=== PATIENT | female | born 1995 | race Caucasian/White ===

== ENCOUNTER 2024-11-28 09:50 | Outpatient (REF) | payer MEDICAID, SELFPAY ==
--- OUTSIDE RECORDS SUMMARY | 2024-11-28 09:00 | XMS_ITS | Encounter Summary ---
Author Organization [employer] Address [address] [facility] [address] 7t [place] [address] Care Team Providers Care Gastroenterology Teacher Name Role Phone Jacqueline Cardozo Primary Care Provider [phone] Encounter Details Date Type Department Care Team ([facility] st Contact Info) Description 11/28/2024 9:00 AM EDT Office Visit [facility] MEDICINE [address] [place] [address] Jacqueline Cardozo FNP [address] [place] [address] Adult wellness visit (Primary Dx); Dietary counseling; Exercise counseling Social History Tobacco Use Types Packs/Day Years Used Date Smoking Tobacco: Never Passive Smoke Exposure: Never Smokeless Tobacco: Never Depression Answer Date Recorded Patient Health Questionnaire-9 Score 3 11/24/2024 Patient Health Questionnaire-9 Score 3 11/24/2024 Last PHQ-9: Questionnaire Data Not on file 0 11/24/2024 Housing Stability Answer Date Recorded What is your housing situation today? I have tc frey 11/17/[address] you li ve. Do you have problems with any of the following? None of the above 11/17/2024 Food Insecurity Answer Date Recorded Within the past 12 months, y ou worried that your food would run out before you got money to buy more: Never True 11/17/2024 Within the past 12 months,th e food you bought just didn't last and you didn't have enough money to get more: Never True Transportation Answer Date Recorded In the past 12 months, has l ack of transportation kept you from medical appts, meetings, work or from getting things needed for daily living? No 11/17/2024 Utilities Answer Date Recorded In the past 12 months, has t he electric, gas, oil or water company threatened to shut off services in your home? No 11/17/2024 Depression Answer Date Recorded Patient Health Questionnaire-2 Score 0 11/24/2024 Internet Access Answer Date Recorded Internet Access Q1 Yes 11/17/2024 Internet Access Q2 Not on file 11/17/2024 Comments Unknown Sex and Gender Information Value Date Recorded Sex Assigned at Female 08/23/2024 2:07 PM EDT Legal Sex Female 9:37 AM EST Gender Identity Female 08/23/2024 2:07 PM EDT Sexual Orientation Straight 08/23/2024 2: 07 PM EDT documented as of this encounter Last Filed Vital Signs Vital Sign Reading Time Taken Comments Blood Pressure 124/84 11/28/2024 9:00 AM EDT Pulse 92 11/28/2024 9:00 AM EDT Temperature 36.8 C (98.2 F) 11/28/2024 9:00 AM EDT Respiratory Rate 16 11/28/2024 9:00 AM EDT Oxygen Saturation 98% 11/28/2024 9:00 AM EDT Inhaled Oxygen Concentration - - Weight 101 kg (223 lb 8 oz) 11/28/2024 9:00 AM E DT Height 169.5 cm (5' 6.73 ) 11/28/2024 9:00 AM ED T Body Mass Index 35.29 11/28/2024 9:00 AM EDT documented in this encounter Plan of Treatment Scheduled Orders Name Type Priority Associated Diagnoses Orde r Schedule Hepatitis B Surface Antibody, Qualitative Lab Routine Adult wellness visit Expected: 11/28/2024 (Approximate), Expires: 11/27/2025 Hepatitis B surface antigen, EIA Lab Routine Adult wellness visit Expected: 11/28/2024 (Approximate), Expires: 11/27/2025 Hepatitis C Antibody with Reflex to HCV, RNA, Quantitative, Real-Time PCR Lab Routine Adult wellness visit Expected: 11/28/2024, Expires: 11/27/2025 CBC auto differential Lab Routine Adult wellness visit Expected: 11/28/2024 (Approximate), Expires: 11/27/2025 HIV-1/2 Antigen and Antibodies, Fourth Generation, with Reflexes Lab Routine Adult wellness visit Expected: 11/28/2024 (Approximate), Expires: 11/27/2025 Lipid Panel, Standard Lab Routine Adult wellness visit Expected: 11/28/2024 (Approximate), Expires: 11/27/2025 Vitamin D, 25-Hydroxy, Total, Immunoassay Lab Routine Adult wellness visit Expected: 11/28/2024 (Approximate), Expires: 11/27/2025 Hemoglobin A1c Lab Routine Adult wellness visit Expected: 11/28/2024 (Approximate), Expires: 11/27/2025 TSH Lab Routine Adult wellness visit Expected: 11/28/2024 (Approximate), Expires: 11/27/2025 Hepatitis B Core Antibody, Total Lab Routine Adult wellness visit Expected: 11/28/2024 (Approximate), Expires: 11/27/2025 Comprehensive Metabolic Panel Lab Routine Adult wellness visit Expected: 11/28/2024 (Approximate), Expires: 11/27/2025 documented as of this encounter Visit Diagnoses Diagnosis Adult wellness visit- Primary Dietary counseling Dietary surveillance and counseling Exercise counseling documented in this encounter Additional Health Concerns Assessment Noted Time PHQ-9 Depression Total Score: 3 11/25/19 25 3:10 PM EDT documented as of this encounter Care Teams Gastroenterology Teacher Relationship Specialty Start Date End Date Jacqueline Cardozo FNP [address] [place] [id number] PCP - General Family Medicine 11/24/24 documented as of this encounter
--- OUTSIDE RECORDS SUMMARY | 2024-11-28 11:04 | XMS_ITS | Encounter Summary ---
Author Organization [employer] Address [address] [facility] [address] [place] [address] Care Team Providers Care Enterprise Account Executive Name Role Phone HuongVaishali WES Primary Care Provider [phone] Reason for Visit * Reason Onset Date Comments CHARTPRP 11/23/2024 Encounter Details Date Type Department Care Team (Late st Contact Info) Description 11/23/[address] [facility] MEDICINE [address] [place] [id number] Anushka Babin MA CHARTPRP Social History Tobacco Use Types Packs/Day Years Used Date Smoking Tobacco: Never Assessed Depression Answer Date Recorded Patient Health Questionnaire-9 [...] PM EDT documented as of this encounter Miscellaneous Notes * Telephone Encounter - Anushka Babin MA - 11/23/2024 3:54 PM EDT Chart Prep Labs: done Images: not applicable Referrals: Pulmonology charan 12/13/24 2:30 PM Vaccines due: Covid, Flu, PCV20, Tdap, Hep B, and HPV Screenings: pap smear Overdue care gaps: SBIRT, PHQ-9, LUIS-7, Disability screen, and Tobacco documented in this encounter Plan of Treatment Not on file documented as of this encounter Visit Diagnoses Not on filedocumented in this encounter Care Teams Enterprise Account Executive Relationship Specialty Start Date End Date Vaishali Borja NP [address] [place] [id number] PCP - General Family Medicine 08/23/24 11/23/24 documented as of this encounter
--- OUTSIDE RECORDS SUMMARY | 2024-11-28 11:04 | XMS_ITS | Clinical Summary ---
Author Organization [facility] Address [address] [facility] [address] [place] [address] Phone Care Team Providers Care Desk Clerks Supervisor Name Role Phone Eneida Andrews MD Primary Care Provid er Kvng Gold MD Unavailable [phone] Allergies Active Allergy Reactions Criticality Noted Date Comments Peanut Hives 05/03/2024 Medications albuterol 90 mcg/actuation inhaler Inhale 2 puffs into the lungs every 6 (six) hours as needed for wheezing. Active fluticasone propionate (FLONASE) 50 mcg/actuation nasal spray 1 spray by Nasal route daily. Active cetirizine (ZYRTEC) 10 MG tabletIndications :Mild intermittent asthma, unspecified whether complicated Take 1 tablet (10 mg total) by mouth daily. 90 tablet 1 05/03/2024 Active fluticasone propionate (FLONASE) 50 mcg/actuation nasal spray 2 sprays by Nasal route daily. 16 g 12 05/03/2024 Active ADVAIR DISKUS 250-50 mcg/dose DISKUSIndications :Mild intermittent asthma, unspecified whether complicated INHALE 1 PUFF INTO THE LUNGS TWICE DAILY 180 each 3 10/06/2024 Active Active Problems Problem Noted Date Diagnosed Date Sleep apnea 05/03/2024 Allergic rhinitis due to pollen 05/03/2024 Snoring 09/18/2021 Overview (05/03/2024): 08/2021 Home Sleep Study did not reveal sleep apnea or nocturnal hypoxia. Mild intermittent asthma 06/17/2021 Encounters Date Type Department Care Team Description 10/05/2024 Refill [facility] - Primary Care - [address] [id number] Keyla Vivas CNP Medication Refill from Last 3 Months Family History Medical History Relation Comments No Known Problems Brother No Known Problems Father Prostate cancer Maternal Grandfather Diabetes Mother Hypertension Mother Asthma Unspecified Relation Status Comments Brother Alive Father Alive Maternal Grandfather Mother Alive Unspecified Social History Tobacco Use Types Packs/Day Years Used Date Smoking Tobacco: Never Smokeless Tobacco: Never Tobacco Cessation:Counseling Given: Not Answered Alcohol Use Standard Drinks/Week Comments Not Currently 0 (1 standard drink = 0.6 oz pur e alcohol) OCC WINE Education Answer Date Recorded Are you interested in more education? Not on nkechi e 04/04/2024 Are you concerned about learning? Not on file 04/04/2024 No 04/04/2024 No 04/04/2024 Digital Access Answer Date Recorded No 04/04/2024 No 04/04/2024 Reliable internet access at home? Not on file 04/04/2024 Device with a working camera? Not on file Comments No Sex and Gender Information Value Date Recorded Sex Assigned at Female 03/13/2024 10:46 AM EST Legal Sex Female 10:35 AM EST Gender Identity Female 03/13/2024 10:46 AM EST Sexual Orientation Straight 03/13/2024 10 :46 AM EST Last Filed Vital Signs Vital Sign Reading Time Taken Comments Blood Pressure 110/80 05/03/2024 2:04 PM EST Pulse 100 05/03/2024 2:04 PM EST Temperature - - Respiratory Rate - - Oxygen Saturation 99% 05/03/2024 2:04 PM EST Inhaled Oxygen Concentration - - Weight 100.7 kg (222 lb) 05/03/2024 2:04 PM EST Height 162.6 cm (5' 4 ) 05/03/2024 2:04 PM EST Body Mass Index 38.11 05/03/2024 2:04 PM EST Plan of Treatment Upcoming Encounters Date Type Department Care Team (Late st Contact Info) Description 03/02/2025 2:00 PM EST Office Visit [facility] - Family Medicine - [place] [address] [place] [phone] Eneida Andrews MD [address] [place] [address] [email or web address] Health Maintenance Due Date Last Done Comments Adult Td,Tdap Booster 1995 HEPATITIS C SCREENING 2014 HIV ONE-TIME SCREENING (18-6 5 YEARS) 2014 PNEUMOCOCCAL VACCINES (0-49 years) (1 of 2 - PCV) 11/22/2015 PAP SMEAR 2017 INFLUENZA VACCINE (#1) 2024 COVID-19 VACCINE ( - 2023-2 5 season) 2024 DEPRESSION SCREENING 04/26/2025 04/26/2024 SMOKING STATUS SCREENING (On ce After 26 Yrs) Completed 05/03/2024 HEPATITIS A VACCINES Aged Out No long er eligible based on patient's age to complete this topic HIB VACCINES Aged Out No longer eligi ble based on patient's age to complete this topic MENINGOCOCCAL VACCINES (ACWY) Aged Out No longer eligible based on patient's age to complete this topic MENINGOCOCCAL VACCINES (B) Aged Out N o longer eligible based on patient's age to complete this topic Medical Devices Not on file Insurance [address] [place] [address] 03/[address] [employer] 03/[address] ACO 202 03/[address] [employer]CO * Guarantor: Campos, Loren Account Type Relation to Patient Date of Phone Billing Address Personal/Family Self 1995 [address] [place] [address] [facility] * Guarantor: Loren Campos Account Type Relation to Patient Date of Phone Billing Address Personal/Family Self 1995 [address] [place] [address] [facility] Care Teams Desk Clerks Supervisor Relationship Specialty Start Date End Date Eneida Andrews MD [email or web address] PCP - General Family Medicine 04/03/24 Kvng Gold MD [address] [place] [address] Obstetrics and Gynecology 05/03/24 Additional Source Comments The information contained in this document represents components of the legal health record. It is not the complete legal health record.[facility]
--- OUTSIDE RECORDS SUMMARY | 2024-11-28 11:04 | XMS_ITS | Encounter Summary ---
Author Organization [employer] Address [address] [facility] 7t [place] [address] Care Team Providers Care Bakery And Deli Sales Manager Name Role Phone Jacqueline Cardozo [facility] Primary Care Provider [phone] Encounter Details Date Type Department Care Team (Latest Contact Info) Description 11/28/2024 Travel Social History Tobacco Use Types Packs/Day Years Used Date Smoking Tobacco: Never Passive Smoke Exposure: Never Smokeless Tobacco: Never Depression Answer Date Recorded Patient Health Questionnaire-9 Score 3 11/24/2024 Patient Health Questionnaire-9 Score 3 11/24/2024 Last PHQ-9: Questionnaire Data Not on file 0 11/24/2024 Housing Stability Answer Date Recorded What is your housing situation today? I have tc tk 11/17/[address] you li [...] PM EDT documented as of this encounter Plan of Treatment Not on file documented as of this encounter Visit Diagnoses Not on filedocumented in this encounter Additional Health Concerns Assessment Noted Time PHQ-9 Depression Total Score: 3 11/25/19 3:10 PM EDT documented as of this encounter Care Teams Bakery And Deli Sales Manager Relationship Specialty Start Date End Date Jacqueline Cardozo FNP [address] [place] [phone] PCP - General Family Medicine 11/24/24 documented as of this encounter
--- OUTSIDE RECORDS SUMMARY | 2024-11-28 11:04 | XMS_ITS | Encounter Summary ---
Author Organization [employer] Address [address] [facility] 7t [place] [address] Care Team Providers Care Vocational Counselor Name Role Phone Jacqueline Cardozo [facility] Primary Care Provider [phone] Encounter Details Date Type Department Care Team (Latest Contact Info) Description 11/24/2024 Travel Social History Tobacco Use Types Packs/Day [...] PM EDT documented as of this encounter Functional Status * Over the past 2 weeks, how often have you been bothered by any of the following problems? Question Answer Date of Assessment Author Patient Health Questionnaire -2 Score 0 11/24/2024 3:10 PM EDT Verónica Sullivan MA * Little interest or pleasure in doing things Answer Date of Assessment Author Not at all 11/24/2024 3:10 PM EDT Verónica Woodard MA * Feeling down, depressed, or hopeless Answer Date of Assessment Author Not at all 11/24/2024 3:10 PM EDT Verónica oWodard MA * Trouble falling or staying asleep, or sleeping too much Answer Date of Assessment Author Several days 11/24/2024 3:10 PM EDT Verónica Woodard MA * Feeling tired or having little energy Answer Date of Assessment Author Several days 11/24/2024 3:10 PM EDT Verónica Woodard MA * Poor appetite or overeating Answer Date of Assessment Author Several days 11/24/2024 3:10 PM EDT Verónica Woodard MA * Feeling bad about yourself - or that you are a failure or have let yourself or your family down Answer Date of Assessment Author Not at all 11/24/2024 3:10 PM EDT Vreónica Woodard MA * Trouble concentrating on things, such as reading the newspaper or watching television Answer Date of Assessment Author Not at all 11/24/2024 3:10 PM EDT Verónica Woodard MA * Moving or speaking so slowly that other people could have noticed? Or the opposite - being so fidgety or restless that you have been moving around a lot more than usual. Answer Date of Assessment Author Not at all 11/24/2024 3:10 PM EDT Verónica Woodard MA * Thoughts that you would be better off or hurting yourself in some way Answer Date of Assessment Author Not at all 11/24/2024 3:10 PM EDT Verónica Woodard MA * Patient Health Questionnaire-9 Score Answer Date of Assessment Author 3 11/24/2024 3:10 PM EDT Verónica Woodard MA * How difficult have these problems made it for you to do your work, take care of things at home, or get along with other people? Answer Date of Assessment Author Not difficult at all 11/24/2024 3:10 PM EDT Verónica Ordonez MA * Over the last 2 weeks, how often have you been bothered by any of the following problems? Question Answer Date of Assessment Author Feeling nervous, anxious, or on edge 1 11/24/2024 3:10 PM EDT Verónica Sullivan MA Not being able to stop or control worrying 1 11/24/2024 3:10 PM EDT Verónica Sullivan MA Worrying too much about different things 1 11/24/2024 3:10 PM EDT Verónica Sullivan MA Trouble relaxing 1 11/24/2024 3:10 PM EDT Verónica Barone MA Being so restless that it is hard to sit still 0 11/24/2024 3:10 PM EDT Verónica Sullivan MA Becoming easily annoyed or irritable 1 11/24/2024 3:10 PM EDT Verónica Sullivan MA Feeling afraid as if somethi ng awful might happen 0 11/24/2024 3:10 PM EDT Verónica Sullivan MA LUIS-7 Total Score 5 11/24/2024 3:10 PM EDT Verónica Sullivan MA documented as of this encounter Plan of Treatment Not on file documented as of this encounter Visit Diagnoses Not on filedocumented in this encounter Additional Health Concerns Assessment Noted Time PHQ-9 Depression Total Score: 3 11/25/19 3:10 PM EDT documented as of this encounter Care Teams Vocational Counselor Relationship Specialty Start Date End Date Jacqueline Cardozo FNP [address] [place] [id number] PCP - General Family Medicine 11/24/24 documented as of this encounter
--- OUTSIDE RECORDS SUMMARY | 2024-11-28 11:04 | XMS_ITS | Encounter Summary ---
Author Organization [employer] Address [address] [facility] 7t [place] [address] Care Team Providers Care Account Executive Key Accounts Name Role Phone SandraVaishali montano SWITCHBOARD AND CONTROL ROOM OPERATOR Primary Care Provider [phone] Jacqueline Cardozo BUSINESS PROCESS ANALYST Primary Care Provider [phone] Reason for Visit * Reason Onset Date Comments New PT 05/19/2024 Encounter Details Date Type Department Care Team ([facility] st Contact Info) Description 05/19/2024 Telephone [facility] MEDICINE [address] [place] [address] Baudilio Simmons MD [address] [place] [address] New PT Social History Tobacco Use Types Packs/Day Years Used Date Smoking Tobacco: Never Assessed Comments Unknown Sex and Gender Information Value Date Recorded Sex Assigned at Female 08/23/2024 2:07 PM EDT Legal Sex Female 9:37 AM EST Gender Identity Female 08/23/2024 2:07 PM EDT Sexual Orientation Straight 08/23/2024 2: 07 PM EDT documented as of this encounter Miscellaneous Notes * Telephone Encounter - Brunilda Ashford - 05/19/2024 9:58 AM EST Outgoing call to pt to switch plan to C3. Pt stated she contacted and will be reflected in 24hrs. Test Examiner advised will re-verify on 05/22/24 and contact pt * Telephone Encounter - Julisa Miguel - 05/19/2024 9:42 AM EST TC from caller requesting NEW PATIENT visit . DX : Asthma Sinusitis Herpes Medical Concern: Insurance name : [employer] C3 Location : [facility] Demographic information updated documented in this encounter Plan of Treatment Not on file documented as of this encounter Visit Diagnoses Not on filedocumented in this encounter Care Teams Account Executive Key Accounts Relationship Specialty Start Date End Date Vaishali Borja NP [address] [place] [address] PCP - General Family Medicine 08/23/24 11/23/24 Jacqueline Cardozo FNP [address] [place] [address] PCP - General Family Medicine 11/24/24 documented as of this encounter
--- OUTSIDE RECORDS SUMMARY | 2024-11-28 11:05 | XMS_ITS | Clinical Summary ---
Author Organization [employer] Address [address] [facility] 7t [place] [address] Care Team Providers Care Reading Specialist Name Role Phone Jacqueline Cardozo [facility] Primary Care Provider [phone] Allergies Active Allergy Reactions Criticality Noted Date Comments Peanut-Containing Drug Products Hives 07/2024 Medications albuterol 108 (90 Base) MCG/ACT inhaler Inhale 2 puffs every 6 (six) hours if needed for wheezing. Active ibuprofen 400 MG tabletIndicati ons:Cough in adult patient Take 1 tablet (400 mg) by mouth every 6 (six) hours if needed for moderate pain or fever for up to 30 doses. 30 tablet 08/24/19 25 Active albuterol (2.5 MG/3ML) 0.083% nebulizer solutionIndica tions:Wheezing Take 3 mL (2.5 mg) by nebulization every 6 (six) hours if needed for wheezing or shortness of breath. 75 mL 1 08/24/19 25 026 Active cetirizine (ZyrTEC) 10 MG tabletIndicati ons:Viral URI TAKE 1 TABLET BY MOUTH EVERY DAY 90 tablet 1 09/19/19 25 Active budesonide-for moterol (Symbicort) 160-4.5 MCG/ACT inhaler Inhale 2 puffs in the morning and at bedtime. 10/28/19 25 Active Azelastine-Flu ticasone 137-50 MCG/ACT suspension Administer 1 puff into affected nostril(s) 2 times daily. 10/28/19 25 Active acyclovir (Zovirax) 800 MG tablet Take 800 mg by mouth Once per day. 05/26/19 22 Active hydrOXYzine HCl (Atarax) 10 MG tablet Take 10 mg by mouth if needed each day for allergies. Active fluticasone (Flonase) 50 MCG/ACT nasal sprayIndicatio ns:Cough in adult patient Administer 1 spray into each nostril 2 times daily. Shake gently. Before first use, prime pump. After use, clean tip and replace cap. 16 g 2 08/24/19 25 025 Discontinued Active Problems Problem Noted Date Diagnosed Date Moderate persistent asthma with exacerbation Acute frontal sinusitis 10/10/2024 Elevated blood pressure reading 10/10/2024 Assessment & Plan (10/10/2024 3:22 PM EDT): Likely due to her upper respiratory symptoms and discomfort I advised low-sodium diet and weight reduction I advised to follow-up with PCP Sleep apnea 05/03/2024 Allergic rhinitis due to pollen 05/03/2024 Snoring 09/18/2021 Overview (11/27/2024): 08/2021 Home Sleep Study did not reveal sleep apnea or nocturnal hypoxia. Resolved Problems Problem Noted Date Diagnosed Date Resolved Date Mild intermittent asthma 06/17/2021 Encounters Date Type Department Care Team Description 11/28/2024 9:00 AM EDT Office Visit [facility] [address] [place] [phone] Jacqueline Cardozo FNP Adult wellness visit (Primary Dx); Dietary counseling; Exercise counseling 11/28/2024 Travel 11/24/2024 Travel 11/23/2024 Telephone [facility] [address] [place] [address] Anushka Babin MA CHARTPRP 11/17/2024 Patient Outreach [facility] [address] [place], [place] [phone] Vaishali Borja NP Pre-visit Planning (SDOH negative. Tobacco screening negative. ) 10/10/2024 1:00 PM EDT Office Visit [facility] [address] [place] [address] Angela Powell MD Moderate persistent asthma with exacerbation (Primary Dx); Cough in adult patient; Acute frontal sinusitis, recurrence not specified; Elevated blood pressure reading 10/10/2024 Travel 10/04/2024 Travel 09/17/2024 Refill [facility] [address] [place] [address] Peterson Diallo MD Viral URI from Last 3 Months Immunizations Immunization Administration Dates Next Due Influenza injectable quadriv alent preservative free 04/11/2021 Pfizer Covid-19 Vaccine 12+ 04/11/2021, 1,08/03/2020 Family History Medical History Relation Name Comments Allergic rhinitis Brother Prostate cancer Maternal Grandfather dece ased Asthma Mother Diabetes Mother Hypertension Mother Relation Name Status Comments Brother Maternal Grandfather Mother Social History Tobacco Use Types Packs/Day Years Used Date Smoking Tobacco: Never Passive Smoke Exposure: Never Smokeless Tobacco: Never Tobacco Cessation:Counseling Given: Not Answered Depression Answer Date Recorded Patient Health Questionnaire-9 Score 3 11/24/2024 Patient Health Questionnaire-9 Score 3 11/24/2024 Last PHQ-9: Questionnaire Data Not on file 0 11/24/2024 Housing Stability Answer Date Recorded What is your housing situation today? I have tcneris frey 11/17/[address] you [...] Orientation Straight 08/23/2024 2: 07 PM EDT Last Filed Vital Signs Vital Sign Reading [...] Mass Index 35.29 11/28/2024 9:00 AM EDT Plan of Treatment Health Maintenance Due Date Last Done Comments HIV Screening 1995 Family Planning (PISQ) 11/22/2011 HPV Vaccines (1 - 3-dose series) 11/22/2011 Hepatitis C Screening 2014 DTaP/Tdap/Td Vaccines (1 - Tdap) 11/22/2015 Hepatitis B Vaccines (1 of 3 - 19+ 3-dose series) 11/22/2015 Pneumococcal Vaccine: Pediatrics (0 to 5 Years) and At-Risk Patients (6 to 49) Years (1 of 2 - PCV) 11/22/2015 Pap Smear 2017 COVID-19 Vaccine (4 - 2024-2 6 season) 2024 04/11/2021, 08/24/2020, 08/03/2020 Influenza Vaccine (#1) 2024 04/11/2021 Alcohol/Substance Use Screening 11/24/2025 11/24/2024 Depression Screening 11/24/2025 11/24/2024, 11/24/2024 SDOH Screening 11/24/2025 11/24/2024 Disability Screening 11/25/2025 11/25/2024 Tobacco Screening 11/28/2025 11/28/2024 Zoster Vaccines (1 of 2) 2046 RSV Patients and Patients Aged 60 years or older (1 - 1-dose 75+ series) 11/22/2071 HIB Vaccines Aged Out No longer eligi ble based on patient's age to complete this topic Hepatitis A Vaccines Aged Out No long er eligible based on patient's age to complete this topic IPV Vaccines Aged Out No longer eligi ble based on patient's age to complete this topic Meningococcal B Vaccine Aged Out No l onger eligible based on patient's age to complete this topic Meningococcal Vaccine Aged Out No kvng carey eligible based on patient's age to complete this topic RSV under 20 months Aged Out No longe r eligible based on patient's age to complete this topic Rotavirus Vaccines Aged Out No longer eligible based on patient's age to complete this topic Procedures Procedure Name Priority Date/Time Associated Diagnosis Comments POCT INFLUENZA B (ID NOW RAPID MOLECULAR) Routine 10/10/2024 1:33 PM EDT Cough in adult patient POCT INFLUENZA A (ID NOW RAPID MOLECULAR) Routine 10/10/2024 1:33 PM EDT Cough in adult patient POCT RAPID COVID ANTIGEN Routine 10/10/2024 1:21 PM EDT Cough in adult patient from Last 3 Months Results * Influenza B (ID NOW Rapid Molecular) (10/10/2024 1:33 PM EDT) Influenza B Negative Negative, Indeterminate [facility] Swab 10/10/2024 1:33 PM EDT us Angela Williamson MD POINT OF CARE TEST EN TER/EDIT ORDERABLES Final Result [facility] [address] [place] [phone] * Influenza A (ID NOW Rapid Molecular) (10/10/2024 1:33 PM EDT) Influenza A Negative Negative, Indeterminate [facility] Swab 10/10/2024 1:33 PM EDT us Angela Williamson MD POINT OF CARE TEST EN TER/EDIT ORDERABLES Final Result [facility] [address] [place] [phone] * POCT Rapid COVID Ag (10/10/2024 1:21 PM EDT) Rapid COVID Ag Negative Swab 10/10/2024 1:21 PM EDT us Angela Williamson MD POINT OF CARE TEST EN TER/EDIT ORDERABLES Final Result from Last 3 Months Insurance [facility] C3 Care Teams Reading Specialist Relationship Specialty Start Date End Date Jacqueline Cardozo FNP [address] [place] [phone] PCP - General Family Medicine 11/24/24
[2024-11-28 11:09] LABS: MANUAL DIFF FLAG NO
[2024-11-28 11:16] LABS: Hematocrit 39.7 % (37.0-47.0); Hemoglobin 13.0 g/dl (12.0-16.0); Imm Gran Abs Auto 0.03 X10*3/uL (0.00-0.03); Imm Gran Pct Auto 0.4 % (0.0-0.4); Lymphocytes Absolute Auto 2.5 X10*3/uL (1.2-4.9); Mean Corpuscular HGB Conc 32.7 g/dl (31.0-35.0); Mean Corpuscular Hemoglobin 27.4 pg (27.0-33.0); Mean Corpuscular Volume 83.8 fL (80.0-98.0); NRBC Abs Auto 0.000 X10*3/uL (0.0-0.012); NRBC Pct Auto 0.0 /100WBC (0.0-0.2); Platelet Count 350 X10*3/uL (160-400); Red Blood Count 4.74 X10*6/uL (4.20-5.50); White Blood Count 7.6 X10*3/uL (4.8-10.8)
[2024-11-28 11:36] LABS: Hemoglobin A1C 109.6546 umol/L; Total Hemoglobin (HGBA1C) 3374.3932 umol/L
[2024-11-28 12:16] LABS: HBS Num1 855.43 mIU/mL (0-7.99); HBc Num1 0.11 S/CO (0.00-0.79); HBsAGNum1 0.43 S/CO (0.00-0.99); HIV Num 1 0.05 S/CO (0.00-0.99); Hepatitis B Surface Antigen Negative (Negative); ~HepC Num1 0.10 S/CO (0.00-0.79); ~Hepatitis B Surface Antibody REACTIVE (Nonreactive); ~Hepatitis C Antibody Nonreactive (Nonreactive)
[2024-11-28 12:23] LABS: Alanine Aminotransferase 15 U/L (0-31); Albumin Level 4.0 g/dL (3.5-5.0); Alkaline Phosphatase 78 U/L (39-117); Anion Gap 10 (12-20); Aspartate Amino Transferase 19 U/L (5-31); Blood Urea Nitrogen 8 mg/dL (9-16); Calcium 8.6 mg/dL (8.4-10.2); Carbon Dioxide 27 mmol/L (22-29); Chloride 105 mmol/L (96-108); Cholesterol 196 mg/dL (<200); Estimated Glomerular Filt Rate > 60; HDL Cholesterol 39 mg/dL (>40); Potassium 3.9 mmol/L (3.3-5.1); Sodium 138 mmol/L (135-145); Thyroid Stimulating Hormone 0.61 uIU/mL (0.32-4.0); Total Protein 7.0 g/dL (6.5-8.0); Triglycerides 115 mg/dL (<150)
== END 2024-11-28 09:51 | disposition home or self-care (01) ==
LOC: HO.HHCL 09:50
PROVIDERS: PCP Nurse Practitioner Family; Visit Provider Nurse Practitioner Family
DX: Z00.00 Encounter for general adult medical examination without abnormal findings (principal)
CPT/HCPCS: 36415; 80053; 80061; 82306; 83036; 84443; 85025; 86704; 86706; 86803; 87340; 87389

== ENCOUNTER 2024-12-13 14:33 | Outpatient (REF) | payer MEDICAID, SELFPAY ==
[2024-12-13 18:36] LABS: Hematocrit 37.8 % (37.0-47.0); Hemoglobin 12.3 g/dl (12.0-16.0); Imm Gran Abs Auto 0.02 X10*3/uL (0.00-0.03); Imm Gran Pct Auto 0.3 % (0.0-0.4); Lymphocytes Absolute Auto 3.1 X10*3/uL (1.2-4.9); MANUAL DIFF FLAG NO; Mean Corpuscular HGB Conc 32.5 g/dl (31.0-35.0); Mean Corpuscular Hemoglobin 27.5 pg (27.0-33.0); Mean Corpuscular Volume 84.4 fL (80.0-98.0); NRBC Abs Auto 0.000 X10*3/uL (0.0-0.012); NRBC Pct Auto 0.0 /100WBC (0.0-0.2); Platelet Count 338 X10*3/uL (160-400); Red Blood Count 4.48 X10*6/uL (4.20-5.50); White Blood Count 7.9 X10*3/uL (4.8-10.8)
[2024-12-14 20:23] LABS: Class Alternaria alternata 0; Class Aspergillus fumigatus 0; Class Bermuda Grass 0; Class Birch 0; Class Cat Dander 0/1; Class Cladosporium herbarum 0; Class Cockroach 0; Class Common Ragweed 0; Class Cottonwood 0; Class Derm. pterony 2; Class Dermatophagoides farinae 2; Class Dog Dander 0; Class Elm 0; Class Maple Box Elder 0; Class Mountain Cedar 0; Class Mouse Urine Protein 0; Class Mugwort 0; Class Oak 0; Class Penicillium crysogenum 0; Class Rough Pigweed 0; Class Sheep Sorrel 0; Class Sycamore 0; Class Timothy Grass 0; Class Walnut Tree 0; Class White Ash 0; Class White Mulberry 0; D002 - IgE D farinae 0.98 kU/L; E001 - IgE Cat Dander 0.14 kU/L; E005 - IgE Dog Dander <0.10 kU/L; G006 - IgE Timothy Grass <0.10 kU/L; I006-IgE Cockroach, German <0.10 kU/L; M002 - IgE Cladosporium herbar <0.10 kU/L; M003 - IgE Aspergillus fumigat <0.10 kU/L; M006 - IgE Alternaria alternat <0.10 kU/L; T001 IgE Maple/Box Elder <0.10 kU/L; T006 - IgE Cedar, Mountain <0.10 kU/L; T007 - IgE Oak, White <0.10 kU/L; T008 IgE Elm, American <0.10 kU/L; T010 - IgE Walnut <0.10 kU/L; T011 - IgE Maple Leaf Sycamore <0.10 kU/L; T014 - IgE Cottonwood <0.10 kU/L; T015 - IgE Ash, White <0.10 kU/L; T070 - IgE White Mulberry <0.10 kU/L; W001 - IgE Ragweed, Short <0.10 kU/L; W006 - IgE Mugwort <0.10 kU/L; W014 IgE Pigweed, Common <0.10 kU/L; W018 IgE Sheep Sorrel <0.10 kU/L
== END 2024-12-13 14:34 | disposition home or self-care (01) ==
LOC: HO.WFDLDS 14:33
PROVIDERS: PCP Nurse Practitioner Family; Referring Provider Internal Medicine; Visit Provider Nurse Practitioner Family
DX: Z91.09 Other allergy status, other than to drugs and biological substances (principal)
CPT/HCPCS: 36415; 82785; 85025; 86003; 99212

== ENCOUNTER 2024-12-13 14:33 | Outpatient (AMB) | payer MEDICAID, SELFPAY ==
--- NOTE | 2024-12-13 14:36 | MHC.OFFVIS ---
Vital Signs 12/13/24 14:38 Height 5 ft 7 in Weight 232 lb 8 oz BMI 36.4 BP 118/78 Blood Pressure Location Rt brachial Position Sitting Pulse 99 Pulse Source Pulse Oximeter Pulse Oximetry (%) 99 Oxygen Delivery Method Room Air Intake Visit Reasons: Asthma Allergies No Known Allergies Allergy (Verified 12/13/24 14:42) HPI HPI Asthma: Details: Loren is a pleasant 29 year old female, never smoker, with underlying asthma. She was referred by PCP for pulmonary evaluation. She has had asthma since and has never been hospitalized for it. Her symptoms include occasional difficulty breathing, which worsened after moving from [place] to the [facility]. Previously she reported good control with Wixela however recently switched to Advair and reports no effect. She started using Symbicort, which has been effective in managing her symptoms, occasionally requiring Ventolin for acute symptoms. She also uses a nebulizer with albuterol as needed. PFT performed in [place] 2023 revealed mild obstructive defect consistent with asthma. Reportedly prior CXR unremarkable. Reports occasional dyspnea, denies cough or wheezing currently. She also experiences urticaria, which she associates with stress and environmental factors. There is no history of recurrent respiratory infections or significant exposure to respiratory irritants. The patient has a history of allergic rhinitis and nasal polyps, which exacerbate her asthma symptoms. She has been using Flonase without significant relief and is requesting a referral to ENT for further management. She denies recent allergy testing. She denies any occupational exposures. She reports mother with h/o asthma. [facility] Social History (Updated 12/13/24 @ 14:42 by Angela Seals [facility]) Patient Tobacco Use Status: Never used Tobacco Review of Systems Const Denies chills, Denies excessive sweating, Denies fever(s), Denies headache(s) and Denies night sweats Eyes Denies dry eyes, Denies irritation and Denies itchy eyes ENT Reports Normal hearing present, Denies headache(s), Denies nasal discharge, Denies post nasal drip and Denies sore throat Card Denies chest pain, Denies chest pain at rest, Denies chest pain with activity, Denies claudication, Denies leg edema, Denies dyspnea, Denies orthopnea and Denies paroxysmal nocturnal dyspnea Resp Denies chest congestion, Denies cough, Denies excessive phlegm production, Denies pain on inspiration, Denies pain with cough, Denies dyspnea, Denies stridor and Denies wheezing Musc Denies myalgias Neuro Reports Normal hearing present and Denies headache(s) Endo Denies excessive sweating Lavell/Lymph Denies lymphadenopathy Aller/Immun Denies itchy eyes, Denies seasonal rhinorrhea and Denies wheezing Physical Exam Vital Signs: Last Vital Signs Pulse 99 12/13/24 14:38 BP 118/78 12/13/24 14:38 Pulse Ox 99 12/13/24 14:38 Oxygen Delivery Method Room Air 12/13/24 14:38 BMI result Body Mass Index 36.4 Const General: cooperative, healthy appearing, comfortable, no acute distress, well developed and alert Nutritional Appearance: obese Orientation/consciousness: patient oriented x3 Limitations: no limitations HEENT Head: Yes normal to inspection, Yes normocephalic and Yes atraumatic Ears: hearing grossly normal bilaterally and external ears normal Eyes General: appearance normal, both eyes and all related structures Eyelids: Yes eyelids normal Sclerae: sclerae normal EOM: EOMs intact bilaterally Neck Neck: Yes normal visual inspection and Yes no lymphadenopathy Lymphatic: no lymphadenopathy noted Chest Chest palpation & inspection: normal inspection of the chest Resp Effort & Inspection: normal respiratory effort, able to speak in complete sentences, no audible wheezes, no cough, no stridor, not tachypneic, no tripod positioning and no use of accessory muscles Auscultation: clear to auscultation bilaterally Cardio Jugular venous distension: no JVD Rate: regular rate Rhythm: regular rhythm Skin Other: warm, dry General skin exam: no rashes or lesions noted Neuro General: patient oriented x3 Cranial nerves: Yes Normal hearing present Cognition (Neuro): normal cognition Gait exam (Neuro): Normal gait present Extrem General: Yes normal to inspection, Yes capillary refill normal, Yes no clubbing, cyanosis or edema and Yes no pedal edema Psych Appearance: grossly normal and well kempt Speech and movement: Normal speech and movement present and Clear speech present Affect: normal affect Attitude: cooperative Thought process: Normal thought process present Thought content: Normal thought content present Insight: Good insight present (Psych) Judgement: Good judgement present (Psych) Assessment & Plan Assessment & Plan (1) Asthma: Code(s): J45.909 - Unspecified asthma, uncomplicated Category: Medical (2) Environmental allergies: Code(s): Z91.09 - Other allergy status, other than to drugs and biological substances Category: Medical Plan Discussed with the patient the continuation of her current asthma management plan, including the use of Symbicort and Ventolin. We talked about the potential need for ENT evaluation for her nasal polyps and allergic rhinitis. Will enter referral. Advised her on the importance of allergy testing and blood work to identify any underlying issues that may exacerbate her asthma. All questions were answered and patient is in agreement of plan. Will follow up in 2-3 months or sooner if needed. Orders: Orders Immunoglobulin E Today Z91.09 - Other allergy status, other than to drugs and biological substances Resp Allergy Profile Region I Today Z91.09 - Other allergy status, other than to drugs and biological substances Complete Blood Count Auto Diff Today Z91.09 - Other allergy status, other than to drugs and biological substances Referrals Ear/Nose/Throat Referral J33.9 - Nasal polyp, unspecified Medications: New budesonide-formoterol 160-4.5 mcg/actuation (Symbicort) 2 puffs inhalation BID 10.2 grams 3RF azelastine administer into each nostril 2 sprays intranasal BID 30 mL 2RF albuterol sulfate 90 mcg/actuation 2 puffs inhalation Q4-6H PRN 1 ea 2RF shortness of breath or wheezing Coding Level of Care Code New Pt Level 4 (78563) Diagnoses Asthma J45.909 Environmental allergies Z91.09
[2024-12-13 14:38] VITALS: BP 118/78; PULSE 99; O2SAT 99; BMI 36.4
--- OUTSIDE RECORDS SUMMARY | 2024-12-13 18:14 | XMS_ITS | Encounter Summary ---
Author Organization [employer] Address [address] [facility] [address] [place] [address] Care Team Providers Care Dairy Husbandry Teacher Name Role Phone Jacqueline Cardozo Primary Care Provider [phone] Reason for Visit * Reason Onset Date Comments Med Refill 12/04/2024 Encounter Details Date Type Department Care Team ([facility] st Contact Info) Description 12/04/2024 Refill [facility] MEDICINE [address] [place] [address] Jacqueline Cardozo FNP [address] [place] [address] Social History Tobacco Use Types Packs/Day Years [...] encounter Miscellaneous Notes * Telephone Encounter - Amy Lechuga RN - 12/12/2024 11:51 AM EDT TC placed to pt via [employer] senior web developer (ID#[id number]) regarding request for hydrOXYzine HCl (Atarax) 10MG tablet. Pt reports they previously got medication from [place]. Pt reports medication used hives as they get hives with stress and anxiety. Pt reports they are out of their medication and are requesting refill. Advised pt message to be sent to PCP for review, but as pt's states they are currently experiencing the hives to come to [facility] for evaluation. Pt verbalized understanding and denies questions at this time. Message forwarded to PCP to review and advise. * Telephone Encounter - Micaela Alatorre - 12/11/2024 9:21 AM EDT Tc from pt requesting a call back in regard of prior message Contact pt at [phone] * Telephone Encounter - Belkis Garcia LPN - 12/04/2024 9:51 AM EDT Last seen 11.28.24 * Telephone Encounter - Micaela Miguel Landry - 12/04/2024 9:38 AM EDT TC from pt requesting medication refill. Medications needing refill : - hydrOXYzine HCl (Atarax) 10 MG tablet ( 90 TABLET) To be sent to: - [id number] - [place] - [address] [facility] documented in this encounter Plan of Treatment Upcoming Encounters Date Type Department Care Team (Late st Contact Info) Description 01/02/2025 9:00 AM EDT Nutrition [facility] DIABETES/NUTRITION [address] [place] [address] Veronika Thompson, KAITLIN [address] [place] [address] documented as of this encounter Visit Diagnoses Not on filedocumented in this encounter Additional Health Concerns Assessment Noted Time PHQ-9 Depression Total Score: 3 11/25/19 25 3:10 PM EDT documented as of this encounter Care Teams Dairy Husbandry Teacher Relationship Specialty Start Date End Date Jacqueline Cardozo FNP [address] [place] [address] PCP - General Family Medicine 11/24/24 documented as of this encounter
--- OUTSIDE RECORDS SUMMARY | 2024-12-13 18:14 | XMS_ITS | Encounter Summary ---
Author Organization [email or web address] Address [address] [facility] [address] [place] [address] Care Team Providers Care Excelsior Cutter Name Role Phone SandraVaishali montano POCKET ASSEMBLER Primary Care Provider [phone] Jacqueline Cardozo INSPECTOR BALL POINTS Primary Care Provider [phone] Reason for Visit * Reason Onset Date Comments New PT 05/19/2024 Encounter Details Date Type Department Care Team ([facility] st Contact Info) Description 05/19/2024 Telephone [facility] MEDICINE [address] [place] [address] Baudilio Simmons MD [address] [place] [address] New PT Social History Tobacco Use Types [...] contacted and will be reflected in 24hrs. Field Broomer advised will re-verify on 05/22/24 and contact pt * Telephone Encounter - Julisa Miguel - 05/19/2024 9:42 AM EST TC from caller requesting NEW PATIENT visit . DX : Asthma Sinusitis Herpes Medical Concern: Insurance name : [employer] C3 Location : [facility] Demographic information updated documented in this encounter Plan of Treatment Upcoming Encounters Date Type Department Care Team (Late st Contact Info) Description 01/02/2025 9:00 AM EDT Nutrition [facility] DIABETES/NUTRITION [address] [place] [address] [place] [address] documented as of this encounter Visit Diagnoses Not on filedocumented in this encounter Care Teams Excelsior Cutter Relationship Specialty Start Date End Date Vaishali Borja NP [address] [place] [address] PCP - General Family Medicine 08/23/24 11/23/24 Jacqueline Cardozo FNP [address] [place] [address] PCP - General Family Medicine 11/24/24 documented as of this encounter
--- OUTSIDE RECORDS SUMMARY | 2024-12-13 18:14 | XMS_ITS | Clinical Summary ---
Author Organization [facility] Address [address] [facility] [address] [place] [phone] Phone Care Team Providers Care Document Management Technician Name Role Phone Enedia Andrews MD Primary Care Provid er Kvng Gold MD Unavailable [phone] Allergies Active Allergy Reactions Criticality Noted Date [...] Department Care Team Description 10/05/2024 Refill [facility] - Primary Care - [address] [phone] Keyla Vivas CNP Medication Refill from Last [...] Description 03/02/2025 2:00 PM EST Office Visit [facility] - Family Medicine - [place] [address] [place] [phone] Eneida Andrews MD [address] [place] [address] [email or web address] Health Maintenance Due Date Last [...] Devices Not on file Insurance 202 1/[address] [place] [id number] 03/[address] ACO 03/[address] ACO 202 03/[address] ACO * Guarantor: Campos, Loren Account Type Relation to Patient Date of Phone Billing Address Personal/Family Self 1995 [address] [place] [address] [facility] * Guarantor: Loren Campos Account Type Relation to Patient Date of Phone Billing Address Personal/Family Self 1995 [address] [place] [address] [facility]CO Care Teams Document Management Technician Relationship Specialty Start Date End Date Eneida Andrews MD [email or web address] PCP - General Family Medicine 04/03/24 Kvng Gold MD [address] [place] [address] Obstetrics and Gynecology 05/03/24 Additional Source Comments The information contained in this document represents components of the legal health record. It is not the complete legal health record.[facility]
--- OUTSIDE RECORDS SUMMARY | 2024-12-13 18:14 | XMS_ITS | Clinical Summary ---
Author Organization [employer] Address 75 [facility] 7t [place] [address] Care Team Providers Care Payroll Coordinator Name Role Phone Jacqueline Cardozo [facility] Primary Care Provider [phone] Allergies Active Allergy Reactions Criticality Noted Date [...] if needed each day for allergies. Active cholecalcifero l (Vitamin D-3) 50 MCG (2000 UT) capsule Take 1 capsule (50 mcg) by mouth Once per day. 30 capsule 1 11/29/19 25 Active fluticasone (Flonase) 50 MCG/ACT nasal sprayIndicatio ns:Cough in adult patient Administer 1 spray into each nostril 2 times daily. Shake gently. Before first use, prime pump. After use, clean tip and replace cap. 16 g 2 08/24/19 25 025 Discontinued Active Problems Problem Noted Date Diagnosed Date Vitamin D deficiency 11/28/2024 Acute frontal sinusitis 10/10/2024 Elevated blood pressure reading 10/10/2024 Assessment & Plan (10/10/2024 3:22 PM EDT): Likely due to her upper respiratory symptoms and discomfort I advised low-sodium diet and weight reduction I advised to follow-up with PCP Moderate persistent asthma without complication 10/10/2024 Sleep apnea 05/03/2024 Allergic rhinitis due to pollen 05/03/2024 Snoring 09/18/2021 Overview (11/27/2024): 08/2021 Home Sleep Study did not reveal sleep apnea or nocturnal hypoxia. Resolved Problems Problem Noted Date Diagnosed Date Resolved Date Mild intermittent asthma 06/17/2021 Encounters Date Type Department Care Team Description 12/13/2024 Telephone [facility] [address] [place] [phone] Nutrition appt 12/11/2024 Telephone [facility] [address] [place] [address] Jacqueline Cardozo FNP Appointment Request 12/04/2024 Refill [facility] [address] [place] [address] Jacqueline Cardozo FNP 11/29/[address] [address] Arcelia Bennett RN 11/28/2024 9:00 AM EDT Office Visit [address] [place] [address] Jacqueline Cardozo FNP Adult wellness visit (Primary Dx); Dietary counseling; Exercise counseling; Class 2 obesity due to excess calories with body mass index (BMI) of 35.0 to 35.9 in adult, unspecified whether serious comorbidity present; Snoring; Moderate persistent asthma without complication; Vitamin D deficiency 11/28/2024 Travel 11/24/2024 Travel 11/23/2024 Telephone [facility] [address] [place] [address] Anushka Babin MA CHARTPRP 11/17/2024 Patient Outreach [facility] [address] [place], [place] [phone] Vaishali Borja NP Pre-visit Planning (SDOH negative. Tobacco screening negative. ) 10/10/2024 1:00 PM EDT Office Visit [facility] [address] [place] [phone] Angela Powell MD Moderate persistent asthma with exacerbation (Primary Dx); Cough in adult patient; Acute frontal sinusitis, recurrence not specified; Elevated blood pressure reading 10/10/2024 Travel 10/04/2024 Travel 09/17/2024 Refill [facility] [address] [place] [phone] Peterson Diallo MD Viral URI from Last 3 Months Immunizations Immunization Administration Dates Next Due Influenza injectable quadriv alent preservative free 04/11/2021 Pfizer Covid-19 Vaccine 12+ 04/11/2021,,08/03/2020 Family History Medical History Relation Name Comments [...] Q2 Not on file 11/17/2024 Comments Unknown Intention Date Recorded No desire to become (finding) 0 11/28/2024 Sex and Gender Information Value Date Recorded [...] 11/28/2024 9:00 AM EDT Plan of Treatment Upcoming Encounters Date Type Department Care Team (Late st Contact Info) Description 01/02/2025 9:00 AM EDT Nutrition [facility] DIABETES/NUTRITION [address] [place], [place] [phone] Veronika Thompson, RD [address] [place], [place] [phone] Health Maintenance Due Date Last Done Comments Hepatitis B Vaccines (1 of 3 - 19+ 3-dose series) 11/22/2015 Pap Smear 2017 COVID-19 Vaccine (4 - 2024-2 6 season) 2024 04/11/2021, 08/24/2020, 08/03/2020 Influenza Vaccine (#1) 2024 04/11/2021 Alcohol/Substance Use Screening 11/24/2025 11/24/2024 Depression Screening 11/24/2025 11/24/2024, 11/24/2024 SDOH Screening 11/24/2025 11/24/2024 Disability Screening 11/25/2025 11/25/2024 DTaP/Tdap/Td Vaccines (1 - Tdap) 11/28/2025 Postponed from 11/21 (Patient Refused) Family Planning (PISQ) 11/28/2025 11/28/2024 HPV Vaccines (1 - 3-dose series) 11/28/2025 Postponed from 11/21 (Patient Refused) Pneumococcal Vaccine: Pediatrics (0 to 5 Years) and At-Risk Patients (6 to 49) Years (1 of 2 - PCV) 11/28/2025 Postponed from 10/28 (Patient Refused) Tobacco Screening 11/28/2025 11/28/2024 Lipid Panel 11/28/2029 11/28/2024 Zoster Vaccines (1 of 2) 2046 RSV Patients and Patients Aged 60 years or older (1 - 1-dose 75+ series) 11/22/2071 HIV Screening Completed 11/28/2024 Hepatitis C Screening Completed 11/28/2024 HIB Vaccines Aged Out No longer eligi [...] Procedure Name Priority Date/Time Associated Diagnosis Comments COMPREHENSIVE METABOLIC PANEL Routine 11/28/2024 10:14 AM EDT Adult wellness visit HEPATITIS B CORE AB TOTAL Routine 11/28/2024 10:14 AM EDT Adult wellness visit TSH Routine 11/28/2024 10:14 AM EDT Adult wellness visit HEMOGLOBIN A1C Routine 11/28/2024 10:14 AM EDT Adult wellness visit VITAMIN D,25-OH,TOTAL,IA Routine 11/28/2024 10:14 AM EDT Adult wellness visit LIPID PANEL, STANDARD Routine 11/28/2024 10:14 AM EDT Adult wellness visit HIV 1/2 ANTIGEN/ANTIBODY, FOURTH GENERATION W/RFL Routine 11/28/2024 10:14 AM EDT Adult wellness visit CBC WITH AUTO DIFFERENTIAL Routine 11/28/2024 10:14 AM EDT Adult wellness visit HEPATITIS C AB W/REFL TO HCV RNA, QN, PCR Routine 11/28/2024 10:14 AM EDT Adult wellness visit HEPATITIS B SURFACE ANTIGEN, EIA Routine 11/28/2024 10:14 AM EDT Adult wellness visit HEPATITIS B SURFACE ANTIBODY, QUALITATIVE Routine 11/28/2024 10:14 AM EDT Adult wellness visit POCT INFLUENZA B (ID NOW RAPID MOLECULAR) Routine 10/10/2024 1:33 PM EDT Cough in adult patient POCT INFLUENZA A (ID NOW RAPID MOLECULAR) Routine 10/10/2024 1:33 PM EDT Cough in adult patient POCT RAPID COVID ANTIGEN Routine 10/10/2024 1:21 PM EDT Cough in adult patient from Last 3 Months Results * (ABNORMAL) Vitamin D, 25-Hydroxy, Total, Immunoassay (11/28/2024 10:14 AM EDT) Pathologist [facility] Vitamin D 25-OH Total 22.8(L) >30 ng/mL [facility] Comment: Health Based Reference Values*< 20 ng/mL [id number] ng/mL Insufficient> 30 ng/mL Sufficient*Enedina WINTERS. N Engl J Med. 2007;357:266-280There is no well-established upper level of normal vitamin Dlevels. Some laboratories use 50 ng/mL as an upper limit ofnormal. However, toxicity is patient-dependent and may occurat any level. Careful correlation with the patient'spresentation is necessary and, if there is concern forvitamin D toxicity, treatment should be consideredirrespective of the serum level.Care must be taken in interpreting Vitamin D results fromdifferent laboratories and methodologies. Published datademonstrated that results from patients undergoinghemodialysis may show a negative bias when tested withvarious automated 25-OH vitamin D assays when compared toLC-MS/MS.When testing samples from patients whose predominant form ofVitamin D is Vitamin D2, such as patients receiving VitaminD2 supplementation, results that are subtherapeutic shouldbe confirmed with another method such as LC-MS/MS. Blood Venous blood specimen / Unknown 11/28/2024 10:14 AM EDT 11/28/2024 11:01 AM EDT us Jacqueline Cardozo POACHER OPERATOR LAB BLOOD ORDERABLES Final Res ult [facility] [address] [place], [place] [phone] * CBC auto differential (11/28/2024 10:14 AM EDT) White Blood Count 7.6 4.8 - 10.8 X10*3/uL [facility] Red Blood Count 4.74 4.20 - 5.50 X10*6/uL [facility] Hemoglobin 13.0 12.0 - 16.0 g/dl [facility] Hematocrit 39.7 37.0 - 47.0 % [facility] Mean Corpuscular Volume 83.8 80.0 - 98.0 fL [facility] Mean Corpuscular Hemoglobin 27.4 27.0 - 33.0 pg [facility] Mean Corpuscular HGB Conc 32.7 31.0 - 35.0 g/dl [facility] Red Cell Distribution Width 14.2 11.0 - 16.0 % [facility] Platelet Count 350 160 - 400 X10*3/uL [facility] Mean Platelet Volume 9.5 9.4 - 12.3 fL [facility] Neutrophils Percent Auto 60.4 45 - 73 % [facility] Imm Gran Pct Auto 0.4 0.0 - 0.4 % [facility] Lymphocytes Percent Auto 32.1 20 - 40 % [facility] Monocytes Percent Auto 4.5 2 - 11 % [facility] Eosinophils Percent Auto 2.1 0 - 4 % [facility] Basophils Percent Auto 0.5 0 - 2 % [facility] NRBC Pct Auto 0.0 0.0 - 0.2 /100WBC [facility] Neutrophils Absolute Auto 4.6 2.0 - 8.3 x10*3/uL [facility] Imm Gran Abs Auto 0.03 0.00 - 0.03 X10*3/uL [facility] Lymphocytes Absolute Auto 2.5 1.2 - 4.9 X10*3/uL [facility] Monocytes Absolute Auto 0.3 0.1 - 1.2 X10*3/uL [facility] Eosinophils Absolute Auto 0.2 0.0 - 0.4 X10*3/uL [facility] Basophils Absolute Auto 0.0 0.0 - 0.2 X10*3/uL [facility] NRBC Abs Auto 0.000 0.0 - 0.012 X10*3/uL [facility] Blood Venous blood specimen / Unknown 11/28/2024 10:14 AM EDT 11/28/2024 11:07 AM EDT [facility] Final Res ult Performing Organization Address City/[facility]/ZIP Co de Phone Number [facility] [address] [place] [phone] * Hepatitis C Antibody with Reflex to HCV, RNA, Quantitative, Real-Time PCR (11/28/2024 10:14 AM EDT) Hepatitis C Antibody Nonreactive Nonreactive [facility] Comment:Antibodies to HCV no t detected; does not exclude early acuteHCV infection. Blood Venous blood specimen / Unknown 11/28/2024 10:14 AM EDT 11/28/2024 11:01 AM EDT Jacqueline [facility] LAB BLOOD ORDERABLES Final Res ult Performing Organization Address [facility] Co de Phone Number [facility] [address] [place] [phone] * Hepatitis B surface antigen, EIA (11/28/2024 10:14 AM EDT) Hepatitis B Surface Ag Negative Negative [facility] Blood Venous blood specimen / Unknown 11/28/2024 10:14 AM EDT 11/28/2024 11:01 AM EDT [facility]LOOD [facility]LES Final Res ult Performing Organization Address City/[facility] Co de Phone Number [facility] [address] [place] [phone] * Hepatitis B Core Antibody, Total (11/28/2024 10:14 AM EDT) [facility] Hepatitis B Core Antibody Nonreactive Nonreactive [facility] Blood Venous blood specimen / Unknown 11/28/2024 10:14 AM EDT 11/28/2024 11:01 AM EDT [facility] LAB BLOOD ORDERABLES Final Res ult Performing Organization Address [facility]/ZIP Co de Phone Number [facility] [address] [place] [phone] * HIV-1/2 Antigen and Antibodies, Fourth Generation, with Reflexes (11/28/2024 10:14 AM EDT) [facility] HIV AB/AG Nonreactive Nonreactive [facility] Comment:HIV-1 p24 Ag and/or HIV-1/HIV-2 Ab not detected.A test result that is nonreactive does not exclude thepossibility of exposure to or infection with HIV-1 and/orHIV-2. Nonreactive results in this assay for individualswith prior exposure to HIV-1 and/or HIV-2 may be due toantigen and antibody levels that are below the limit ofdetection of this assay.The [employer] HIV Ag/Ab Combo assay result andsupplemental assay results should be interpreted inconjunction with the patient's clinical presentation,history and other laboratory results. If the results areinconsistent with clinical evidence, additional testing issuggested to confirm the result. Blood Venous blood specimen / Unknown 11/28/2024 10:14 AM EDT 11/28/2024 11:01 AM EDT [facility] BLOOD ORDERABLES Final Res ult Performing Organization Address City/[facility]/ZIP Co de Phone Number [facility] [address] [place] [phone] * Hepatitis B Surface Antibody, Qualitative (11/28/2024 10:14 AM EDT) ~Hepatitis B Surface Antibody REACTIVE Nonreactive [facility] Comment:REACTIVE: > 11.99 mI U/mL Blood Venous blood specimen / Unknown 11/28/2024 10:14 AM EDT 11/28/2024 11:01 AM EDT Jacqueline [employer] POACHER OPERATOR LAB BLOOD ORDERABLES Final Res ult Performing Organization Address [facility]/ZIP Co de Phone Number [facility] [address] [place] [phone] * TSH (11/28/2024 10:14 AM EDT) Thyroid Stimulating Hormone 0.61 0.32 - 4.0 uIU/mL [facility] Comment:TSH 3rd Generation ( [facility]) Blood Venous blood specimen / Unknown 11/28/2024 10:14 AM EDT 11/28/2024 11:01 AM EDT [facility] PO[facility] OPERATOR LAB BLOOD ORDERABLES Final Res ult Performing Organization Address [facility] de Phone Number [facility] [address] [place] [phone] * Hemoglobin A1c (11/28/2024 10:14 AM EDT) Hemoglobin A1c 5.1 <6.0 % [facility] Comment:Hemoglobin A1C Refer ence Range Adults: 4.8 - 6.0 % Non diabetic: < 6.0 % Goal: < 7.0 %Additional Action Suggested: > 8.0 %Note: Hemoglobin A1c results are invalid for patients with abnormal amounts of HbF. Blood transfusions may impact the HbA1c concentration in the patient sample. Estimated Average Glucose 100 mg/dL [facility] Comment:eAG = Estimated ave rage glucose which is %A1C expressed asaverage glucose, using the formula of the D7Y-EjqpbtjQnxeryn Glucose study (ADAG), Diabetes Care, Vol.31,#8,2007 Blood Venous blood specimen / Unknown 11/28/2024 10:14 AM EDT 11/28/2024 11:03 AM EDT us Jacqueline Cardozo [facility] LAB BLOOD ORDERABLES Final Res ult Performing Organization Address [facility]/ZIP Co de Phone Number [facility] [address] [place] [phone] * (ABNORMAL) Lipid Panel, Standard (11/28/2024 10:14 AM EDT) Triglycerides 115 <150 mg/dL [facility] Comment:Desirable Triglyceri de: less than 150 mg/dLBorderline High Triglyceride 150-199 mg/dLHigh Triglyceride: 200-499 mg/dLVery High Triglyceride: greater than or equal to 5OO mg/dL Cholesterol 196 <200 mg/dL [facility] Comment:Desirable Cholestero l: less than 200 mg/dLBorderline High Cholesterol: 200-239 mg/dLHigh Cholesterol: greater than 239 mg/dL LDL Cholesterol Calculated 134(H) <100 mg/dL [facility] Comment:Desirable LDL: less than 100 mg/dLNear Optimal/Above Optimal LDL: 110- 129 mg/dLBorderline High LDL: 130-159 mg/dLHigh LDL: 160-189 mg/dLVery High LDL: greater than or equal to 190 mg/dL HDL Cholesterol 39(L) >40 mg/dL [facility] Comment:Desirable HDL: great er than 40 mg/dL Note: This HDL assay may give artificially low results in patients with liver disease. Blood Venous blood specimen / Unknown 11/28/2024 10:14 AM EDT 11/28/2024 11:01 AM EDT us Jacqueline Cardozo [facility] LAB BLOOD ORDERABLES Final Res ult Performing Organization Address City/[facility]/ZIP Co de Phone Number [facility] [address] [place] [phone] * (ABNORMAL) Comprehensive Metabolic Panel (11/28/2024 10:14 AM EDT) Sodium 138 135 - 145 mmol/L [facility] Potassium 3.9 3.3 - 5.1 mmol/L [facility] Chloride 105 96 - 108 mmol/L [facility] Carbon Dioxide 27 22 - 29 mmol/L [facility] Anion Gap 10(L) 12 - 20 [facility] Urea Nitrogen (BUN) 8(L) 9 - 16 mg/dL [facility] Creatinine, Serum 0.60 0.5 - 1.4 mg/dL [facility] Estimated Glomerular Filt Rate >60 [facility] Comment:Chronic Kidney Disea se: Estimated GFR < 60 mL/min/[id number] Kidney Disease: Estimated GFR < 15 mL/min/1.73m2 Glucose 81 60 - 115 mg/dL [facility] Calcium 8.6 8.4 - 10.2 mg/dL [facility] Bilirubin, Total 0.3 0.0 - 1.0 mg/dL [facility] Aspartate Amino Transferase 19 5 - 31 U/L [facility] Alanine Aminotransferase 15 0 - 31 U/L [facility] Total Protein 7.0 6.5 - 8.0 g/dL [facility] Albumin Level 4.0 3.5 - 5.0 g/dL [facility] Alkaline Phosphatase 78 39 - 117 U/L [facility] Blood Venous blood specimen / Unknown 11/28/2024 10:14 AM EDT 11/28/2024 11:01 AM EDT us Jacqueline Cardozo POACHER OPERATOR LAB BLOOD ORDERABLES Final Res ult [facility] [address] [place] [phone] * Influenza B (ID NOW Rapid Molecular) (10/10/2024 1:33 PM EDT) Pathologist [facility] Influenza B Negative Negative, Indeterminate [facility] Swab 10/10/2024 1:33 PM EDT us Angela Williamson MD POINT OF CARE TEST EN TER/EDIT ORDERABLES Final Result Performing Organization Address City/[facility]/ZIP Co de Phone Number [facility] [address] [place] [phone] * Influenza A (ID NOW Rapid Molecular) (10/10/2024 1:33 PM EDT) Influenza A Negative Negative, Indeterminate [facility] Swab 10/10/2024 1:33 PM EDT us Angela Williamson MD POINT OF CARE TEST EN TER/EDIT ORDERABLES Final Result Performing Organization Address [facility] Co de Phone Number [facility] [address] [place] [phone] * POCT Rapid COVID Ag (10/10/2024 1:21 PM EDT) Rapid COVID Ag Negative Swab 10/10/2024 1:21 PM EDT us Angela Williamson MD POINT OF CARE TEST EN TER/EDIT ORDERABLES Final Result from Last 3 Months Insurance [facility] C3 Care Teams Payroll Coordinator Relationship Specialty Start Date End Date Jacqueline Cardozo FNP [address] [place] [phone] PCP - General Family Medicine 11/24/24
--- OUTSIDE RECORDS SUMMARY | 2024-12-13 18:14 | XMS_ITS | Encounter Summary ---
Author Organization [employer] Address [address] [facility] 7t [place] [address] Care Team Providers Care Hydroelectric Powerplant Supervisor Name Role Phone Jacqueline Cardozo Primary Care Provider Reason for Visit * Reason Onset Date Comments Appointment Request 12/11/2024 Encounter Details Date Type Department Care Team ([facility] Contact Info) Description 12/11/[address] [facility] MEDICINE [address] [place] [address] Jacqueline Cardozo FNP [address] [place] [address] Appointment Request Social History Tobacco Use Types Packs/Day Years [...] encounter Miscellaneous Notes * Telephone Encounter - Micaela Alatorre - 12/11/2024 9:23 AM EDT Tc from pt requesting an call back for sheet taker appt. Contact pt at [phone] documented in this encounter Plan of Treatment Upcoming Encounters Date Type Department Care Team (Late st Contact Info) Description 01/02/2025 9:[address] [facility] DIABETES/NUTRITION [address] [place] [address] [place] [address] documented as of this encounter Visit Diagnoses Not on filedocumented in this encounter Additional Health Concerns Assessment Noted Time PHQ-9 Depression Total Score: 3 11/25/19 3:10 PM EDT documented as of this encounter Care Teams [employer]electric Powerplant Supervisor Relationship Specialty Start Date End Date Jacqueline Cardozo FNP [address] [place] [address] PCP - General Family Medicine 11/24/24 documented as of this encounter
--- OUTSIDE RECORDS SUMMARY | 2024-12-13 18:14 | XMS_ITS | Encounter Summary ---
Author Organization [employer] Address [address] [facility] [address] [place] [address] Care Team Providers Care Clerical Order Filler Name Role Phone Jacqueline Cardozo [facility] Primary Care Provider Reason for Visit * Reason Onset Date Comments Nutrition appt 12/13/2024 Encounter Details Date Type Department Care Team ([facility] st Contact Info) Description 12/13/2024 Telephone [facility] MEDICINE [address] [place] [address] [place] [address] Nutrition appt Social History Tobacco Use Types Packs/Day Years [...] encounter Miscellaneous Notes * Telephone Encounter - Rolanda Cabrera MA - 12/13/2024 10:50 AM EDT T/C to pt to schedule nutrition appt. Pt agree to come in on 01/02/25 at 9am. documented in this encounter Plan of Treatment Upcoming Encounters Date Type Department Care Team (Late st Contact Info) Description 01/02/2025 9:00 AM EDT Nutrition [facility] DIABETES/NUTRITION [address] [place] [address] [place] [phone] documented as of this encounter Visit Diagnoses Not on filedocumented in this encounter Additional Health Concerns Assessment Noted Time PHQ-9 Depression Total Score: 3 11/25/19 3:10 PM EDT documented as of this encounter Care Teams Clerical Order Filler Relationship Specialty Start Date End Date Jacqueline Cardozo FNP [address] [place] [address] PCP - General Family Medicine 11/24/24 documented as of this encounter
== END 2024-12-13 15:08 | disposition home or self-care (01) ==
LOC: HO.HPSW 14:34
PROVIDERS: PCP Nurse Practitioner Family; Referring Provider Internal Medicine; Visit Provider Nurse Practitioner Family
DX: J45.909 Unspecified asthma, uncomplicated (principal); Z91.09 Other allergy status, other than to drugs and biological substances
CPT/HCPCS: 99204

== ENCOUNTER 2025-02-20 13:19 | Outpatient (AMB) | payer MEDICAID, SELFPAY ==
--- NOTE | 2025-02-20 13:32 | A.OFFVIS_ITS ---
Vital Signs 02/20/25 13:33 Height 5 ft 7 in Weight 222 lb BMI 34.8 BP 118/64 Blood Pressure Location Rt brachial Position Sitting Pulse 98 Pulse Source Pulse Oximeter Pulse Oximetry (%) 100 Oxygen Delivery Method Room Air Intake Visit Reasons: Asthma Facilities Management Executive Required: Yes Facilities Management Executive Language: Radiologist Chief Of Breast Imaging Services: Facilities Management Executive Present Facilities Management Executive Name: Angela Bowers LM Allergies No Known Allergies Allergy (Verified 02/20/25 13:35) HPI HPI Asthma: Details: Loren is a pleasant 29 year old female, never smoker, with underlying childhood asthma. She initially referred by PCP for worsening asthma control a fter moving from [place] to the [facility]. Previously she reported good control with Wixela however recently switched to Advair and reports no effect. She started using Symbicort, however only using 1 inhalation b.i.d. and continues to report significant nasal congestion, dyspnea dry cough and chest tightness. She has an upcoming appointment with ENT in April for chronic sinusitis previously has used Flonase, loratadine as well as as a lasting with no improvement. She was previously on Singulair in [place] however has since discontinued, can not recall if she had significant benefit with use. At the last visit she was sent for RAST testing and presents to review results. She denies any visits to urgent care hospitalizations related to respiratory distress since last visit. [facility] Social History Patient Tobacco Use Status: Never used Tobacco Review of Systems Const Denies chills, Denies excessive sweating, Denies fever(s), Denies headache(s) and Denies night sweats Eyes Denies dry eyes, Denies irritation and Denies itchy eyes ENT Reports Normal hearing present, Denies headache(s), Reports nasal congestion, Reports nasal discharge, Reports post nasal drip and Denies sore throat Card Denies chest pain, Denies chest pain at rest, Denies chest pain with activity, Denies claudication, Denies leg edema, Reports dyspnea on exertion, Denies orthopnea and Denies paroxysmal nocturnal dyspnea Resp Denies change in phlegm color, Denies chest congestion, Reports cough, Denies hemoptysis, Denies pain on inspiration, Denies pain with cough, Reports dyspnea on exertion, Denies stridor and Denies wheezing Musc Denies myalgias Neuro Reports Normal hearing present and Denies headache(s) Endo Denies excessive sweating Lavell/Lymph Denies lymphadenopathy Aller/Immun Denies itchy eyes, Denies seasonal rhinorrhea and Denies wheezing Physical Exam Vital Signs: Last Vital Signs Pulse 98 02/20/25 13:33 BP 118/64 02/20/25 13:33 Pulse Ox 100 02/20/25 13:33 Oxygen Delivery Method Room Air 02/20/25 13:33 BMI result Body Mass Index 34.8 Const General: cooperative, healthy appearing, comfortable, no acute distress, well developed and alert Nutritional Appearance: obese Orientation/consciousness: patient oriented x3 Limitations: no limitations HEENT Head: Yes normal to inspection, Yes normocephalic and Yes atraumatic Ears: hearing grossly normal bilaterally and external ears normal Eyes General: appearance normal, both eyes and all related structures Eyelids: Yes eyelids normal Sclerae: sclerae normal EOM: EOMs intact bilaterally Neck Neck: Yes normal visual inspection and Yes no lymphadenopathy Lymphatic: no lymphadenopathy noted Chest Chest palpation & inspection: normal inspection of the chest Resp Effort & Inspection: normal respiratory effort, able to speak in complete sentences, no audible wheezes, no cough, no stridor, not tachypneic, no tripod positioning and no use of accessory muscles Auscultation: clear to auscultation bilaterally Cardio Jugular venous distension: no JVD Rate: regular rate Rhythm: regular rhythm Skin Other: warm, dry General skin exam: no rashes or lesions noted Neuro General: patient oriented x3 Cranial nerves: Yes Normal hearing present Cognition (Neuro): normal cognition Gait exam (Neuro): Normal gait present Extrem General: Yes normal to inspection, Yes capillary refill normal, Yes no clubbing, cyanosis or edema and Yes no pedal edema Psych Appearance: grossly normal and well kempt Speech and movement: Normal speech and movement present and Clear speech present Affect: normal affect Attitude: cooperative Thought process: Normal thought process present Thought content: Normal thought content present Insight: Good insight present (Psych) Judgement: Good judgement present (Psych) Assessment & Plan Assessment & Plan (1) Asthma: Code(s): J45.909 - Unspecified asthma, uncomplicated Category: Medical (2) Environmental allergies: Code(s): Z91.09 - Other allergy status, other than to drugs and biological substances Category: Medical Plan Loren reports suboptimal control with the use of Symbicort 1 inhalation b.i.d., advised to increase it to at inhalations b.i.d. and will also prescribe Singulair in addition to Nasonex to manage allergic component. RAST positive for dust mites and cat, reviewed ways to minimize allergen exposure. She has upcoming appointment with ENT in April to address nasal polyps and chronic rhinitis/sinusitis. She may benefit from biologic therapy. She is aware to call if symptoms do not improve with medication changes made today. All questions were answered and patient is in agreement of plan. Will follow up in 2-3 months or sooner if needed. Medications: New mometasone 50 mcg/actuation (Nasonex 24hr Allergy) administer into each nostril 2 sprays intranasal DAILY 17 grams 3RF montelukast (Singulair) 10 mg PO BEDTIME 30 tabs 3RF Coding Level of Care Code Est Pt Level 4 (46797) Diagnoses Asthma J45.909 Environmental allergies Z91.09
[2025-02-20 13:33] VITALS: BP 118/64; PULSE 98; O2SAT 100; BMI 34.8
--- OUTSIDE RECORDS SUMMARY | 2025-02-20 17:09 | XMS_ITS | Encounter Summary ---
Author Organization [employer] Address [address] [facility] [facility] [address] [place] [address] Care Team Providers Care Corporate Concierge Name Role Phone Jacqueline Cardozo Primary Care Provider [phone] Reason for Visit * Reason Onset Date Comments Appointment Request 12/11/2024 Encounter Details Date Type Department Care Team ([facility] [address] Contact Info) Description 12/11/2024 Telephone [facility] [address] [place] [address] Jacqueline Cardozo FNP [address] [place] [address] Appointment Request Social History Tobacco Use Types [...] from pt requesting an call back for certified nurses aide appt. Contact pt at [phone] documented in this encounter Plan of Treatment Upcoming Encounters Date Type Department Care Team (Late st Contact Info) Description 03/14/2025 2:30 PM EST Office Visit [facility] [address] [place] [address] Jacqueline Cardozo FNP [address] [place] [address] documented as of this encounter Visit Diagnoses Not on filedocumented in this encounter Additional Health Concerns Assessment Noted Time PHQ-9 Depression Total Score: 3 11/25/19 3:10 PM EDT documented as of this encounter Care Teams Corporate Concierge Relationship Specialty Start Date End Date Jacqueline Cardozo FNP [address] [place] [address] PCP - General Family Medicine 11/24/24 documented as of this encounter
--- OUTSIDE RECORDS SUMMARY | 2025-02-20 17:09 | XMS_ITS | Encounter Summary ---
Author Organization [email or web address] Address [address] [facility] [address] [place] [address] Care Team Providers Care Cutter V Groove Name Role Phone SandraVaishali montano DINING ROOM COORDINATOR Primary Care Provider [phone] Jacqueline Cardozo CERTIFIED TEACHER ASSISTANT Primary Care Provider [phone] Reason for Visit * Reason Onset Date Comments New PT 05/19/2024 Encounter Details Date Type Department Care Team ([facility] st Contact Info) Description 05/19/2024 Telephone [facility] [address] [place] [address] Baudilio Simmons MD [address] [place] [address] New PT Social History Tobacco Use Types Packs/Day Years Used Date Smoking Tobacco: Never Assessed Comments Unknown Sex and Gender Information Value Date Recorded Sex Assigned at Female 08/23/2024 2:07 PM EDT Legal Sex Female 9:37 AM EST Gender Identity Female 08/23/2024 2:07 PM EDT Sexual Orientation Straight 08/23/2024 2 :07 PM EDT documented as of this encounter Miscellaneous Notes * Telephone Encounter - Brunilda Ashford - 05/19/2024 9:58 AM EST Outgoing call to pt to switch plan to C3. Pt stated she contacted and will be reflected in 24hrs. Airframe Technical Officer advised will re-verify on 05/22/24 and contact pt * Telephone Encounter - Julisa Miguel - 05/19/2024 9:42 AM EST TC from caller requesting NEW PATIENT visit . DX : Asthma Sinusitis Herpes Medical Concern: Insurance name : [employer] C3 Location : [facility] Demographic information updated documented in this encounter Plan of Treatment Upcoming Encounters Date Type Department Care Team (Late st Contact Info) Description 03/14/2025 2:30 PM EST Office Visit [facility] [address] [place] [address] Jacqueline Cardozo FNP [address] [place] [address] documented as of this encounter Visit Diagnoses Not on filedocumented in this encounter Care Teams Cutter V Groove Relationship Specialty Start Date End Date Vaishali Borja NP [address] [place] [address] PCP - General Family Medicine 08/23/24 11/23/24 Jacqueline Cardozo FNP [address] [place] [address] PCP - General Family Medicine 11/24/24 documented as of this encounter
--- OUTSIDE RECORDS SUMMARY | 2025-02-20 17:09 | XMS_ITS | Clinical Summary ---
Author Organization [facility] Address [address] [place] [address] Phone Care Team Providers Care Wind Turbine Machinist Name Role Phone Kvng Gold MD Unavailable [facility], [facility] Primary Care Provider Allergies Active Allergy Reactions Criticality Noted Date [...] or nocturnal hypoxia. Mild intermittent asthma 06/17/2021 Family History Medical History Relation Comments No [...] 05/03/2024 2:04 PM EST Plan of Treatment Health Maintenance Due Date Last Done Comments Adult Td,Tdap Booster 1995 HEPATITIS C SCREENING 2014 HIV ONE-TIME SCREENING (18-6 5 YEARS) 2014 PNEUMOCOCCAL VACCINES (0-49 years) (1 of 2 - PCV) 11/22/2015 PAP SMEAR 2017 INFLUENZA VACCINE (#1) 2024 COVID-19 VACCINE (2024-2 6 season) 2024 DEPRESSION SCREENING 04/26/2025 04/26/2024 SMOKING [...] topic Medical Devices Not on file Insurance * Guarantor: Loren Campos Account Type Relation to Patient Date of Phone Billing Address Personal/Family Self 1995 03/[address] [place] [address] [facility]CO [facility] C3 ACO * Guarantor: Loren Campos Account Type Relation to Patient Date of Phone Billing Address Personal/Family Self 1995 03[address] [place] [address] [facility]CO [facility]3 ACO [address] [place] [id number] [facility]CO [facility] C3 ACO [facility]CO [facility] C3 ACO * Guarantor: Mohit Camposie Account Type Relation to Patient Date of Phone Billing Address Personal/Family Self 1995 [address] [place], [place] [id number] [place] [address] [facility]CO [facility] C3 ACO * Guarantor: Loren Campos Account Type Relation to Patient Date of Phone Billing Address Personal/Family Self 1995 [address] [place] [address] [employer] [facility] [facility] [employer] Care Teams Wind Turbine Machinist Relationship Specialty Start Date End Date [facility] [address] [place] [address] PCP - General 02/13/25 Kvng Gold MD [address] [place] [id number] Obstetrics and Gynecology 05/03/24 Additional Source Comments The information contained in this document represents components of the legal health record. It is not the complete legal health record.[facility]
--- OUTSIDE RECORDS SUMMARY | 2025-02-20 17:09 | XMS_ITS | Clinical Summary ---
Author Organization [employer] Address [address] [facility] [address] [place] [address] Care Team Providers Care Stock Replenisher Name Role Phone Jacqueline Cardozo [facility] Primary Care Provider [phone] Allergies Active Allergy Reactions Criticality Noted Date Comments Peanut-Containing Drug Products Hives 07/2024 Medications albuterol 108 (90 Base) MCG/ACT inhaler Inhale 2 puffs every 6 (six) hours if needed for wheezing. Active albuterol (2.5 MG/3ML) 0.083% nebulizer solutionIndica tions:Wheezing Take 3 mL (2.5 mg) by nebulization every 6 (six) hours if needed for wheezing or shortness of breath. 75 mL 1 08/24/19 25 026 Active budesonide-for moterol (Symbicort) 160-4.5 MCG/ACT inhaler Inhale 2 puffs in the morning and at bedtime. 10/28/19 25 Active Azelastine-Flu ticasone 137-50 MCG/ACT suspension Administer 1 puff into affected nostril(s) 2 times daily. 10/28/19 25 Active acyclovir (Zovirax) 800 MG tablet Take 800 mg by mouth Once per day. 05/26/19 22 Active cholecalcifero l (Vitamin D-3) 50 MCG (1999 UT) capsule Take 1 capsule (50 mcg) by mouth Once per day. 30 capsule 1 11/29/19 25 Active hydrOXYzine HCl (Atarax) 10 MG tablet Take 1 tablet (10 mg) by mouth if needed each day for allergies. 30 tablet 12/14/19 25 Active sodium chloride ([place] Nasal [place]) 0.65 % nasal sprayIndicatio ns:Nasal congestion Administer 1 spray into each nostril if needed for congestion. 30 mL 1 02/09/20 25 026 Active loratadine (Claritin) 10 MG tabletIndicati ons:Non-season al allergic rhinitis due to pollen Take 1 tablet (10 mg) by mouth Once per day. 30 tablet 5 4:40 PM EST 02/09/20 25 025 Active naproxen (Naprosyn) 500 MG tablet Take 1 tab twice daily with food x 5 days then as needed for pain 30 tablet 5 4:40 PM EST 02/09/20 25 Active ibuprofen 400 MG tabletIndicati ons:Cough in adult patient Take 1 tablet (400 mg) by mouth every 6 (six) hours if needed for moderate pain or fever for up to 30 doses. 30 tablet 08/24/19 25 025 Discontinued Active Problems Problem Noted Date Diagnosed Date Neck pain 02/10/2025 Nasal congestion 02/10/2025 Mood disturbance 02/10/2025 Vitamin D deficiency 11/28/2024 Acute frontal sinusitis [...] Encounters Date Type Department Care Team Description 02/08/2025 9:00 AM EST Office Visit [facility] [address] [place] [address] Jacqueline Cardozo, ELIE Neck pain (Primary Dx); Non-seasonal allergic rhinitis due to pollen; Nasal congestion; Mood disturbance 02/08/2025 Travel 02/05/[address] [address] Jacqueline Cardozo FNP Referral 12/13/2024 Orders Only GENERIC EXTERNAL DATA DEPARTMENT Provider, Generic External Data 12/13/[address] Nutrition appt 12/11/[address] [address] Jacqueline Cardozo FNP Appointment Request 12/04/[address] [address] Jacqueline Cardozo FNP 11/29/[address] [address] Arcelia Bennett RN 11/28/2024 9:00 AM EDT Office Visit [address] [address] Jacqueline Cardozo FNP Adult wellness visit (Primary Dx); Dietary counseling; Exercise counseling; Class 2 obesity due to excess calories with body mass index (BMI) of 35.0 to 35.9 in adult, unspecified whether serious comorbidity present; Snoring; Moderate persistent asthma without complication; Vitamin D deficiency 11/28/2024 Travel 11/24/2024 Travel 11/23/[address] [address] Anushka Babin [place] CHARTPRP from Last 3 Months Immunizations Immunization Administration [...] Sign Reading Time Taken Comments Blood Pressure 119/76 02/08/2025 9:08 AM EST Pulse 110 02/08/2025 9:08 AM EST Temperature 36.7 C (98.1 F) 02/08/2025 9:08 AM EST Respiratory Rate 16 02/08/2025 9:08 AM EST Oxygen Saturation 98% 02/08/2025 9:08 AM EST Inhaled Oxygen Concentration - - Weight 104 kg (230 lb 3.2 oz) 02/08/2025 9:08 AM EST Height 170.2 cm (5' 7 ) 02/08/2025 9:08 AM EST Body Mass Index 36.05 02/08/2025 9:08 AM EST Plan of Treatment Upcoming Encounters Date Type Department Care Team (Late st Contact Info) Description 03/14/2025 2:30 PM EST Office Visit [facility] [address], [place] [phone] Jacqueline Cardozo, HOUSEKEEPING STAFF [address] [place], [place] [phone] Health Maintenance Due Date Last Done Comments Hepatitis B Vaccines (1 of 3 - 19+ 3-dose series) 11/22/2015 Pap Smear 2017 COVID-19 Vaccine ( - 2024-2 6 season) 2024 04/11/2021, 08/24/2020, [...] Postponed from 10/28 (Patient Refused) Tobacco Screening 02/08/2026 02/08/2025 Lipid Panel 11/28/2029 11/28/2024 Zoster Vaccines (1 [...] Procedure Name Priority Date/Time Associated Diagnosis Comments AMB REFERRAL TO SLEEP MEDICINE Routine 02/13/2025 Snoring RAST ALLERGEN (NON ORDERABLE) Routine 12/13/2024 3:15 PM EDT RESPIRATORY ALLERGY PROFILE REGION I Routine 12/13/2024 3:15 PM EDT IMMUNOGLOBULIN E Routine 12/13/2024 3:15 PM EDT IMMUNOGLOBULIN E Routine 12/13/2024 3:15 PM EDT CBC WITH AUTO DIFFERENTIAL Routine 12/13/2024 3:11 PM EDT COMPREHENSIVE METABOLIC PANEL Routine 11/28/2024 10:14 AM [...] 11/28/2024 10:14 AM EDT Adult wellness visit from Last 3 Months Results * Referral to Sleep Medicine (02/13/2025) Jacqueline Cardozo HOUSEKEEPING STAFF OUTPATIENT REFERRAL ORDERABLES Final Result * Rast Allergen (12/13/2024 3:15 PM EDT) Pathologist [facility] Rast Allergen SEE NOTE [facility] Comment:SEE SCANNED REPORT I N EMR 12/13/2024 3:15 PM EDT 12/18/2024 12:34 PM EDT Narrative [facility] - 12/18/2024 12:35 PM EDT CAT DANDER REFLEX us Generic External Data Provider HISTORICAL/NON OR DERABLE LABS Final Result [facility] [address] [place] [phone] * (ABNORMAL) Respiratory Allergy Profile Region I (12/13/2024 3:15 PM EDT) Mouse Urine Proteins (E72) IgE <0.10 kU/L [facility] Class 0 [facility] Cockroach (I6) IgE <0.10 kU/L [facility] Class 0 [facility] Dermatophagoides farinae (D2) IgE 0.98(A) kU/L [facility] Class 2 [facility] Cat Dander (E1) IgE 0.14(A) kU/L [facility] Class 0/1 [facility] Comment:THIS TEST WAS PERFOR MED AT:[facility] [address] [phone] GUZMAN MD Dog Dander (E5) IgE <0.10 kU/L [facility] Class 0 [facility] Comment:THIS TEST WAS PERFOR MED AT:[facility] [address] [phone] GUZMAN MD [place] (G6) IgE <0.10 kU/L [facility] Class 0 [facility] Cladosporium herbarum (M2) IgE <0.10 kU/L [facility] Class 0 [facility] Aspergillus Fumigatis (M3) IgE <0.10 kU/L [facility] Class 0 [facility] Alternaria alternata (M6) IgE <0.10 kU/L [facility] Class 0 [facility] Comment:THIS TEST WAS PERFOR MED AT:[facility] [address] [phone] GUZMAN MD [place] (t6) IgE <0.10 kU/L [facility] Class 0 [facility] Lander (T7) IgE <0.10 kU/L [facility] Class 0 [facility] [place] Tree (T10) IgE <0.10 kU/L [facility] Class 0 [facility] [place] (T11) IgE <0.10 kU/L [facility] Class 0 [facility] Webb (T14) IgE <0.10 kU/L [facility] Class 0 [facility] White Cl[place] (t15) IgE <0.10 kU/L [facility] Class 0 [facility] White [place] (T70) IgE <0.10 kU/L [facility] Class 0 [facility] Common Ragweed (Short) (W1) IgE <0.10 kU/L [facility] Class 0 [facility] Mugwort (w6) IgE <0.10 kU/L [facility] Class 0 [facility] Dermatophagoides pteronyssinus (D1) IgE 1.60(A) kU/L [facility] Class 2 [facility] Bermuda Grass (g2) IgE <0.10 kU/L [facility] Class 0 [facility] Penicillium Notatum (M1) IgE <0.10 kU/L [facility] Class 0 [facility] Birch (T3) IgE <0.10 kU/L [facility] Class 0 [facility] Elm (t8) IgE <0.10 kU/L [facility] Class 0 [facility] Maple ([place]) (T1) IgE <0.10 kU/L [facility] Class 0 [facility] Rough Pigweed (W14) IgE <0.10 kU/L [facility] Class 0 [facility] Sheep Winside (W18) IgE <0.10 kU/L [facility] Class 0 [facility] Allergen Comment See Below [facility] Comment: Specific Level of AllergenIGE Class kU/L Specific IGE Antibody ----- --------- 0 <0.10 Absent/Undetectable 0/1 0.10-0.34 Very Low Level 1 0.35-0.69 Low Level 2 0.70-3.49 Moderate Level 3 3.50-17.4 High Level 4 17.5-49.9 Very High Level 5 50-100 Very High Level 6 >100 Very High LevelThe clinical relevance of allergen results of0.10-0.34 kU/L are undetermined and intended forspecialist use.Allergens denoted with a include results usingone or more analyte specific reagents. In thosecases, the test was developed and its analyticalperformance characteristics have been determined by[employer]. It has not been cleared or approvedby the U.S. Food and Drug Administration. This assayhas been validated pursuant to the CLIA regulationsand is used for clinical purposes.THIS TEST WAS PERFORMED AT:[facility] [address] [phone] GUZMAN MD 12/13/2024 3:15 PM EDT 12/13/2024 6:52 PM EDT Generic External Data Provider LAB BLOOD ORDERAB LES Final Result Performing Organization Address City/[facility] Co de Phone Number [facility] [address] [place] [phone] * Immunoglobulin E (12/13/2024 3:15 PM EDT) Only the most recent of2 resultswithin the time period is included. Pathologist [facility] Immunoglobulin E 22 <KM=605 kU/L [facility] 12/13/2024 3:15 PM EDT 12/13/2024 6:52 PM EDT Generic External Data Provider LAB BLOOD ORDERAB LES Final Result Performing Organization Address [facility] de Phone Number [facility] [address] [place] [phone] * CBC auto differential (12/13/2024 3:11 PM EDT) Only the most recent of2 resultswithin the time period is included. White Blood Count 7.9 4.8 - 10.8 X10*3/uL [facility] Red Blood Count 4.48 4.20 - 5.50 X10*6/uL [facility] Hemoglobin 12.3 12.0 - 16.0 g/dl [facility] Hematocrit 37.8 37.0 - 47.0 % [facility] Mean Corpuscular Volume 84.4 80.0 - 98.0 fL [facility] Mean Corpuscular Hemoglobin 27.5 27.0 - 33.0 pg [facility] Mean Corpuscular HGB Conc 32.5 31.0 - 35.0 g/dl [facility] Red Cell Distribution Width 14.4 11.0 - 16.0 % [facility] Platelet Count 338 160 - 400 X10*3/uL [facility] Mean Platelet Volume 10.2 9.4 - 12.3 fL [facility] Neutrophils Percent Auto 50.8 45 - 73 % [facility] Imm Gran Pct Auto 0.3 0.0 - 0.4 % [facility] Lymphocytes Percent Auto 39.6 20 - 40 % [facility] Monocytes Percent Auto 5.4 2 - 11 % [facility] Eosinophils Percent Auto 3.4 0 - 4 % [facility] Basophils Percent Auto 0.5 0 - 2 % [facility] NRBC Pct Auto 0.0 0.0 - 0.2 /100WBC [facility] Neutrophils Absolute Auto 4.0 2.0 - 8.3 x10*3/uL [facility] Imm Gran Abs Auto 0.02 0.00 - 0.03 X10*3/uL [facility] Lymphocytes Absolute Auto 3.1 1.2 - 4.9 X10*3/uL [facility] Monocytes Absolute Auto 0.4 0.1 - 1.2 X10*3/uL [facility] Eosinophils Absolute Auto 0.3 0.0 - 0.4 X10*3/uL [facility] Basophils Absolute Auto 0.0 0.0 - 0.2 X10*3/uL [facility] NRBC Abs Auto 0.000 0.0 - 0.012 X10*3/uL [facility] 12/13/2024 3:11 PM EDT 12/13/2024 6:43 PM EDT us Generic External Data Provider LAB BLOOD ORDERAB LES Final Result [facility] [address] [place] [phone] * (ABNORMAL) Vitamin D, 25-Hydroxy, Total, Immunoassay (11/28/2024 10:14 AM EDT) Vitamin D 25-OH Total 22.8(L) >30 ng/mL [facility] Comment: Health Based Reference Values*< 20 ng/mL Icwdcdkee16-20 ng/mL Insufficient> 30 ng/mL Sufficient*Enedina WINTERS. N [...] AM EDT 11/28/2024 11:01 AM EDT Jacqueline Cardozo [facility] LAB BLOOD ORDERABLES Final Res ult [facility] [address] [place] [phone] * Hepatitis C Antibody with Reflex to HCV, RNA, Quantitative, Real-Time PCR (11/28/2024 10:14 AM EDT) Hepatitis C Antibody Nonreactive Nonreactive [facility] Comment:Antibodies to HCV no t detected; does not exclude early acuteHCV infection. Blood Venous blood specimen / Unknown 11/28/2024 10:14 AM EDT 11/28/2024 11:01 AM EDT Jacqueline [employer] [facility] LAB BLOOD ORDERABLES Final Res ult Performing Organization Address [facility]/ZIP Co de Phone Number [facility] [address] [place] [phone] * Hepatitis B surface antigen, EIA (11/28/2024 10:14 AM EDT) Hepatitis B Surface Ag Negative Negative [facility] Blood Venous blood specimen / Unknown 11/28/2024 10:14 AM EDT 11/28/2024 11:01 AM EDT Jacqueline [employer] [facility] LAB BLOOD ORDERABLES Final Res ult Performing Organization Address [facility] Co de Phone Number [facility] [address] [place] [phone] * Hepatitis B Core Antibody, Total (11/28/2024 10:14 AM EDT) Hepatitis B Core Antibody Nonreactive Nonreactive [facility] Blood Venous blood specimen / Unknown 11/28/2024 10:14 AM EDT 11/28/2024 11:01 AM EDT [facility] LAB BLOOD ORDERABLES Final Res ult Performing Organization Address [facility] Co de Phone Number [facility] [address] [place] [phone] * HIV-1/2 Antigen and Antibodies, Fourth Generation, with Reflexes (11/28/2024 10:14 AM EDT) HIV AB/AG Nonreactive Nonreactive [facility] Comment:HIV-1 p24 Ag and/or HIV-1/HIV-2 Ab not detected.A test result that is nonreactive does not exclude thepossibility of exposure to or infection with HIV-1 and/orHIV-2. Nonreactive results in this assay for individualswith prior exposure to HIV-1 and/or HIV-2 may be due toantigen and antibody levels that are below the limit ofdetection of this assay.The [employer] HIV Ag/Ab Combo assay result andsupplemental assay results should be interpreted inconjunction with the patient's clinical presentation,history and other laboratory results. If the results areinconsistent with clinical evidence, additional testing issuggested to confirm the result. Blood Venous blood specimen / Unknown 11/28/2024 10:14 AM EDT 11/28/2024 11:01 AM EDT [employer] [facility] LAB BLOOD ORDERABLES Final Res ult Performing Organization Address [facility]/ZIP Co de Phone Number [facility] [address] [place] [phone] * Hepatitis B Surface Antibody, Qualitative (11/28/2024 10:14 AM EDT) ~Hepatitis B Surface Antibody REACTIVE Nonreactive [facility] Comment:REACTIVE: > 11.99 mI U/mL Blood Venous blood specimen / Unknown 11/28/2024 10:14 AM EDT 11/28/2024 11:01 AM EDT [facility] LAB BLOOD ORDERABLES Final Res ult Performing Organization Address [facility]/ZIP Co de Phone Number [facility] [address] [place] [phone] * TSH (11/28/2024 10:14 AM EDT) Thyroid Stimulating Hormone 0.61 0.32 - 4.0 uIU/mL [facility] Comment:TSH 3rd Generation ( [facility]) Blood Venous blood specimen / Unknown 11/28/2024 10:14 AM EDT 11/28/2024 11:01 AM EDT Jacqueline [employer] [facility] LAB BLOOD ORDERABLES Final Res ult [facility] [address] [place] [phone] * Hemoglobin A1c (11/28/2024 10:14 AM EDT) Hemoglobin A1c 5.1 <6.0 % [facility] Comment:Hemoglobin A1C Refer ence Range Adults: 4.8 - 6.0 % Non diabetic: < 6.0 % Goal: < 7.0 %Additional Action Suggested: > 8.0 %Note: Hemoglobin A1c results are invalid for patients with abnormal amounts of HbF. Blood transfusions may impact the HbA1c concentration in the patient sample. Estimated Average Glucose 100 mg/dL [facility] Comment:eAG = Estimated ave rage glucose which is %A1C expressed asaverage glucose, using the formula of the I9X-VrndxdqVfkepxu Glucose study (ADAG), Diabetes Care, Vol.31,#8,Oct. 2007 Blood Venous blood specimen / Unknown 11/28/2024 10:14 AM EDT 11/28/2024 11:03 AM EDT us Jacquelinemalvin Cardozo HOUSEKEEPING STAFF LAB BLOOD ORDERABLES Final Res ult Performing Organization Address [facility] Co de Phone Number [facility] [address] [place] [phone] * (ABNORMAL) Lipid Panel, Standard (11/28/2024 10:14 AM EDT) Triglycerides 115 <150 mg/dL [facility] Comment:Desirable Triglyceri de: less than 150 mg/dLBorderline High Triglyceride 150-199 mg/dLHigh Triglyceride: 200-499 mg/dLVery High Triglyceride: greater than or equal to 5OO mg/dL Cholesterol 196 <200 mg/dL [facility] Comment:Desirable Cholestero l: less than 200 mg/dLBorderline High Cholesterol: 200-239 mg/dLHigh Cholesterol: greater than 239 mg/dL LDL Cholesterol Calculated 134(H) <100 mg/dL [facility] Comment:Desirable LDL: less than 100 mg/dLNear Optimal/Above Optimal LDL: 110- 129 mg/dLBorderline High LDL: 130-159 mg/dLHigh LDL: 160-189 mg/dLVery High LDL: greater than or equal to 190 mg/dL HDL Cholesterol 39(L) >40 mg/dL [facility] Comment:Desirable HDL: great er than 40 mg/dL Note: This HDL assay may give artificially low results in patients with liver disease. Blood Venous blood specimen / Unknown 11/28/2024 10:14 AM EDT 11/28/2024 11:01 AM EDT us Jacquelinehussain Lojajames HOUSEKEEPING STAFF LAB BLOOD ORDERABLES Final Res ult [facility] [address] [place] [phone] * (ABNORMAL) Comprehensive Metabolic Panel (11/28/2024 10:14 AM EDT) Sodium 138 135 - 145 mmol/L [facility] Potassium 3.9 3.3 - 5.1 mmol/L [facility] Chloride 105 96 - 108 mmol/L [facility] Carbon Dioxide 27 22 - 29 mmol/L [facility] Anion Gap 10(L) 12 - 20 [facility] Urea Nitrogen (BUN) 8(L) 9 - 16 mg/dL [facility] Creatinine, Serum 0.60 0.5 - 1.4 mg/dL [facility] Estimated Glomerular Filt Rate >60 [facility] Comment:Chronic Kidney Disea se: Estimated GFR < 60 mL/min/[id number] Kidney Disease: Estimated GFR < 15 mL/min/1.73m2 Glucose 81 60 - 115 mg/dL [facility] Calcium 8.6 8.4 - 10.2 mg/dL [facility] Bilirubin, Total 0.3 0.0 - 1.0 mg/dL [facility] Aspartate Amino Transferase 19 5 - 31 U/L [facility] Alanine Aminotransferase 15 0 - 31 U/L [facility] Total Protein 7.0 6.5 - 8.0 g/dL [facility] Albumin Level 4.0 3.5 - 5.0 g/dL [facility] Alkaline Phosphatase 78 39 - 117 U/L [facility] Blood Venous blood specimen / Unknown 11/28/2024 10:14 AM EDT 11/28/2024 11:01 AM EDT Jacqueline [employer] LAB BLOOD ORDERABLES Final Res ult [facility] [address] [place] [phone] from Last 3 Months [facility] Care Teams Stock Replenisher Relationship Specialty Start Date End Date Jacqueline Cardozo FNP [address] [place] [phone] PCP - General Family Medicine 11/24/24
== END 2025-02-20 13:54 | disposition home or self-care (01) ==
LOC: HO.HPSW 13:20
PROVIDERS: PCP Nurse Practitioner Family; Visit Provider Nurse Practitioner Family
DX: J45.909 Unspecified asthma, uncomplicated (principal); Z91.09 Other allergy status, other than to drugs and biological substances
CPT/HCPCS: 99214

== ENCOUNTER → 2025-02-20 13:19 | Outpatient (BNVA) | payer MEDICAID, SELFPAY | PROVIDERS: PCP Nurse Practitioner Family; Visit Provider Nurse Practitioner Family | DX: J45.909 Unspecified asthma, uncomplicated (principal); Z91.09 Other allergy status, other than to drugs and biological substances | CPT/HCPCS: 99212 ==

== ENCOUNTER 2025-03-16 15:02 | Outpatient (REF) | payer MEDICAID, SELFPAY ==
--- OUTSIDE RECORDS SUMMARY | 2025-03-16 10:40 | XMS_ITS | Encounter Summary ---
Author Organization [employer] Address [address] [facility] 7t [place] [address] Care Team Providers Care Chemical Applicator Name Role Phone Jacqueline Cardozo [facility] Primary Care Provider [phone] Reason for Visit * Reason Comments Vaginal Discharge Encounter Details Date Type Department Care Team ([facility] Contact Info) Description 03/16/2025 10:40 AM EST Office Visit [facility] [address], [place] [phone] [facility] [address] [place] [address] Vaginal discharge Social History Tobacco Use Types Packs/Day Years [...] Sign Reading Time Taken Comments Blood Pressure 125/80 03/16/2025 10:46 AM EST Pulse 89 03/16/2025 10:46 AM EST Temperature 36.7 C (98.1 F) 03/16/2025 10:46 AM EST Respiratory Rate 16 03/16/2025 10:46 AM EST Oxygen Saturation 99% 03/16/2025 10:46 AM EST Inhaled Oxygen Concentration - - Weight 96.6 kg (213 lb) 03/16/2025 10:46 AM EST Height - - Body Mass Index 33.36 03/08/2025 9:59 AM EST documented in this encounter Progress Notes * [facility], ETL INFORMATICA ARCHITECT - 03/16/2025 10:40 AM EST SUBJECTIVE: Loren Elliott is a 29 y.o. year old female who presents for evaluation of vaginal discharge HPI Vaginal Discharge and Odor - IUD placed in September 2024 - Spotting began after IUD placement, described as similar to menstrual spotting - In January 2025, onset of vaginal odor described as old or - [place], liquid vaginal discharge noted, - No pain or burning with urination - Denies pain with intercourse - Denies bleeding after intercourse - Denies fever and chills Sexual History - Reports new sexual partners - Most recent episode of intercourse in January 2025 - Not using condoms with partners IUD Tolerance - Discomfort and dissatisfaction with IUD due to prolonged spotting and discharge - Expressed desire to discontinue IUD and switch to alternative contraception Problem List[1] Review of Systems Constitutional: Negative for fever. HENT: Negative. Respiratory: Negative for shortness of breath. Cardiovascular: Negative for chest pain. Gastrointestinal: Negative for abdominal pain. Genitourinary: Positive for vaginal discharge. Neurological: Negative for dizziness and weakness. OBJECTIVE: Vitals: 03/16/25 1046 BP: 125/80 Pulse: 89 Resp: 16 Temp: 98.1 ??F (36.7 ??C) SpO2: 99% Physical Exam Constitutional: General: She is not in acute distress. Appearance: Normal appearance. HENT: Head: Normocephalic and atraumatic. Right Ear: External ear normal. Left Ear: External ear normal. Nose: Nose normal. Eyes: Conjunctiva/sclera: Conjunctivae normal. Pulmonary: Effort: Pulmonary effort is normal. Neurological: General: No focal deficit present. Mental Status: She is alert and oriented to person, place, and time. Psychiatric: Mood and Affect: Mood normal. Behavior: Behavior normal. ASSESSMENT/PLAN Vaginal discharge: - Vaginal discharge with odor and pinkish color, possibly related to IUD placement. Differential diagnosis includes infection (yeast, bacterial vaginosis, sexually transmitted infections such as gonorrhea and chlamydia) and non-infectious changes due to IUD. - Vaginal swab performed to evaluate for infection, including yeast, bacterial vaginosis, gonorrhea, and chlamydia. Results to be communicated by phone. Advised to seek emergency care if severe pelvic pain, fever, or chills develop. Follow-up with gynecology appointment in March 2025 for IUD management. Diagnosis Plan 1. Vaginal discharge Bacterial Vaginosis POCT urinalysis dipstick manually resulted (CPT 27561) Chlamydia/N. Gonorrhoeae RNA, TMA, Urogenitial This note was drafted using Ambient (AI) technology. The patient/patient's guardian has been informed and has consented to the use of this technology: Yes Follow Up: PRN Medications Ordered Prior to Encounter[2] Gambian Translation: Patient is bilingual and declines translation services [1] Patient Active Problem List Diagnosis Acute frontal sinusitis Elevated blood pressure reading Snoring Sleep apnea Allergic rhinitis due to pollen Moderate persistent asthma without complication Vitamin D deficiency Neck pain Nasal congestion Mood disturbance Moderate persistent asthma with exacerbation Post traumatic stress disorder Insomnia due to anxiety and fear [2] Current Outpatient Medications on File Prior to Visit Medication Sig Dispense Refill acyclovir (Zovirax) 800 MG tablet Take 800 mg by mouth Once per day. albuterol (2.5 MG/3ML) 0.083% nebulizer solution Take 3 mL (2.5 mg) by nebulization every 6 (six) hours if needed for wheezing or shortness of breath. 75 mL 1 albuterol 108 (90 Base) MCG/ACT inhaler Inhale 2 puffs every 6 (six) hours if needed for wheezing. Azelastine-Fluticasone 137-50 MCG/ACT suspension Administer 1 puff into affected nostril(s) 2 timesdaily. budesonide-formoterol (Symbicort) 160-4.5 MCG/ACT inhaler Inhale 2 puffs in the morning and at bedtime. cholecalciferol (Vitamin D-3) 50 MCG (2000 UT) capsule Take 1 capsule (50 mcg) by mouth Once per day. 30 capsule 1 hydrOXYzine HCl (Atarax) 10 MG tablet Take 1 tablet (10 mg) by mouth if needed each day for allergies. 30 tablet 0 levocetirizine (Xyzal) 5 MG tablet Take 1 tablet by mouth Once per day. montelukast (Singulair) 10 MG tablet Take 10 mg by mouth at bedtime. sertraline (Zoloft) 25 MG tablet Take 25 mg daily at night x 14 days then 50 mg daily at night 60 tablet 1 sodium chloride ([place] Nasal [place]) 0.65 % nasal spray Administer 1 spray into each nostril if needed for congestion. 30 mL 1 No current facility-administered medications on file prior to visit. documented in this encounter Plan of Treatment Upcoming Encounters Date Type Department Care Team (Late st Contact Info) Description 04/25/2025 9:45 AM EST Office Visit [facility] [address] [place] [address] Jacqueline Cardozo FNP [address] [place] [address] Scheduled Orders Name Type Priority Associated Diagnoses Orde r Schedule Bacterial Vaginosis Microbiology Routine Vaginal discharge Ordered: 03/16/2025 Chlamydia/N. Gonorrhoeae RNA, TMA, Urogenitial Microbiology Routine Vaginal discharge Ordered: 03/16/2025 documented as of this encounter Procedures Procedure Name Priority Date/Time Associated Diagnosis Comments POCT URINALYSIS DIPSTICK Routine 03/16/2025 11:05 AM EST Vaginal discharge documented in this encounter Results * (ABNORMAL) POCT urinalysis dipstick manually resulted (CPT 98761) (03/16/2025 11:05 AM EST) Color, UA Yellow Clarity, UA Clear Glucose, UA Negative Bilirubin, UA Trace Ketones, UA Positive Comment:Trace Spec Grav, UA 1.025 Blood, UA Positive(A) Negative, None Detected Comment:Trace pH, UA 6.0 Protein, UA Moderate Comment:230MG Urobilinogen, UA 0.2 Leukocytes, UA Negative Negative, Rare, Trace, 1+ (17), 2+ (35), 3+ (70), Trace (15) Nitrite, UA Negative Negative, None Detected Appearance, UA OK Urine (Urine, Random) 03/16/2025 11:05 AM EST [facility] POINT OF CARE TEST ENTER/EDIT ORDERABLES Final Result documented in this encounter Visit Diagnoses Diagnosis Vaginal discharge Leukorrhea, not specified as infective documented in this encounter Additional Health Concerns Assessment Noted Time PHQ-9 Depression Total Score: 3 11/25/19 25 3:10 PM EDT documented as of this encounter Care Teams Chemical Applicator Relationship Specialty Start Date End Date Jacqueline Cardozo FNP [address] [place] [phone] PCP - General Family Medicine 11/24/24 documented as of this encounter
--- OUTSIDE RECORDS SUMMARY | 2025-03-16 16:17 | XMS_ITS | Clinical Summary ---
Author Organization [employer] Address [address] [facility] 7t [place] [address] Care Team Providers Care Dock Boss Name Role Phone Jacqueline Cardozo [facility] Primary Care Provider [phone] Allergies Active Allergy Reactions Criticality Noted Date Comments Peanut-Containing Drug Products Hives 07/2024 Medications albuterol 108 (90 Base) MCG/ACT inhaler Inhale 2 puffs every 6 (six) hours if needed for wheezing. Active albuterol (2.5 MG/3ML) 0.083% nebulizer solutionIndica tions:Wheezing Take 3 mL (2.5 mg) by nebulization every 6 (six) hours if needed for wheezing or shortness of breath. 75 mL 1 5 026 Active budesonide-for moterol (Symbicort) 160-4.5 MCG/ACT inhaler Inhale 2 puffs in the morning and at bedtime. 5 Active Azelastine-Flu ticasone 137-50 MCG/ACT suspension Administer 1 puff into affected nostril(s) 2 times daily. 5 Active acyclovir (Zovirax) 800 MG tablet Take 800 mg by mouth Once per day. 2 Active cholecalcifero l (Vitamin D-3) 50 MCG (1999 UT) capsule Take 1 capsule (50 mcg) by mouth Once per day. 30 capsule 1 5 Active hydrOXYzine HCl (Atarax) 10 MG tablet Take 1 tablet (10 mg) by mouth if needed each day for allergies. 30 tablet 5 Active sodium chloride ([place] Nasal [place]) 0.65 % nasal sprayIndicatio ns:Nasal congestion Administer 1 spray into each nostril if needed for congestion. 30 mL 1 5 026 Active levocetirizine (Xyzal) 5 MG tablet Take 1 tablet by mouth Once per day. 5 Active montelukast (Singulair) 10 MG tablet Take 10 mg by mouth at bedtime. Active sertraline (Zoloft) 25 MG tablet Take 25 mg daily at night x 14 days then 50 mg daily at night 60 tablet 1 03/08/2025 11:08 AM EST Active loratadine (Claritin) 10 MG tabletIndicati ons:Non-season al allergic rhinitis due to pollen Take 1 tablet (10 mg) by mouth Once per day. 30 tablet 02/09/2025 4:40 PM EST 5 025 Discontin ued(Ineff ective) naproxen (Naprosyn) 500 MG tablet Take 1 tab twice daily with food x 5 days then as needed for pain 30 tablet 02/09/2025 4:40 PM EST 5 025 Discontin ued(Thera py completed ) Active Problems Problem Noted Date Diagnosed Date Moderate persistent asthma with exacerbation Post traumatic stress disorder 03/11/2025 Insomnia due to anxiety and fear 03/11/2025 Neck pain 02/10/2025 Nasal congestion 02/10/2025 Mood [...] Encounters Date Type Department Care Team Description 03/16/2025 10:40 AM EST Office Visit [facility] [address] [place] [address] Rhonda Brambila, ELIE Vaginal discharge 03/16/2025 Travel 03/08/2025 10:00 AM EST Office Visit [facility] [address] [place] [phone] Jacqueline Cardozo FNP Post traumatic stress disorder (Primary Dx); Neck pain; Moderate persistent asthma with exacerbation; Insomnia due to anxiety and fear 03/08/2025 Travel 02/08/2025 9:00 AM EST Office Visit [facility] [address] [place] [phone] Jacqueline Cardozo FNP Neck pain (Primary Dx); Non-seasonal allergic rhinitis due to pollen; Nasal congestion; Mood disturbance 02/08/2025 Travel 02/05/2025 Telephone [facility] [address] [place] [phone] Jacqueline Cardozo FNP Referral from Last 3 Months Immunizations Immunization Administration [...] (213 lb) 03/16/2025 10:46 AM EST Height 170.2 cm (5' 7 ) 03/08/2025 9:59 AM EST Body Mass Index 33.36 03/08/2025 9:59 AM EST Plan of Treatment Upcoming Encounters Date Type Department Care Team (Late st Contact Info) Description 04/25/2025 9:45 AM EST Office Visit [facility] [address] [place] [address] Jacqueline Cardozo FNP [address] [place] [address] Health Maintenance Due Date Last Done Comments [...] Postponed from 10/28 (Patient Refused) Tobacco Screening 03/16/2026 03/16/2025 Lipid Panel 11/28/2029 11/28/2024 Zoster Vaccines (1 [...] Routine 03/16/2025 11:05 AM EST Vaginal discharge AMB REFERRAL TO SLEEP MEDICINE Routine 02/13/2025 Snoring HEPATITIS C AB W/REFL TO HCV RNA, QN, PCR Routine 11/28/2024 10:14 AM EDT Adult wellness visit HIV 1/2 ANTIGEN/ANTIBODY, FOURTH GENERATION W/RFL Routine 11/28/2024 10:14 AM EDT Adult wellness visit LIPID PANEL, STANDARD Routine 11/28/2024 10:14 AM EDT Adult wellness visit from Last 3 Months or Most Recently Relevant to Health Maintenance Results * (ABNORMAL) POCT urinalysis dipstick manually resulted (CPT 94950) (03/16/2025 11:05 AM EST) Color, UA Yellow [...] Urine (Urine, Random) 03/16/2025 11:05 AM EST [facility] POINT OF CARE TEST ENTER/EDIT ORDERABLES Final Result * Referral to Sleep Medicine (02/13/2025) Jacqueline Cardozo [facility] OUTPATIENT REFERRAL ORDERABLES Final Result * Hepatitis C Antibody with Reflex to HCV, RNA, Quantitative, Real-Time PCR (11/28/2024 10:14 AM EDT) Hepatitis C Antibody Nonreactive Nonreactive [facility] Comment:Antibodies to HCV no t detected; does not exclude early acuteHCV infection. Blood Venous blood specimen / Unknown 11/28/2024 10:14 AM EDT 11/28/2024 11:01 AM EDT [facility] BLOOD ORDERABLES Final Res ult Performing Organization Address [facility] Co de Phone Number [facility] [address] [place] [phone] * HIV-1/2 Antigen and Antibodies, Fourth Generation, with Reflexes (11/28/2024 10:14 AM EDT) HIV AB/AG Nonreactive Nonreactive [facility] Comment:HIV-1 p24 Ag and/or HIV-1/HIV-2 Ab not detected.A test result that is nonreactive does not exclude thepossibility of exposure to or infection with HIV-1 and/orHIV-2. Nonreactive results in this assay for individualswith prior exposure to HIV-1 and/or HIV-2 may be due toantigen and antibody levels that are below the limit ofdetection of this assay.The [employer] HIV Ag/Ab Combo assay result andsupplemental assay results should be interpreted inconjunction with the patient's clinical presentation,history and other laboratory results. If the results areinconsistent with clinical evidence, additional testing issuggested to confirm the result. Blood Venous blood specimen / Unknown 11/28/2024 10:14 AM EDT 11/28/2024 11:01 AM EDT Erly [facility] LAB BLOOD ORDERABLES Final Res ult Performing Organization Address [facility] Co de Phone Number [facility] [address] [place] [address] [phone] * (ABNORMAL) Lipid Panel, Standard (11/28/2024 10:14 AM EDT) Triglycerides 115 <150 mg/dL [facility] Comment:Desirable Triglyceri de: less than 150 mg/dLBorderline High Triglyceride 150-199 mg/dLHigh Triglyceride: 200-499 mg/dLVery High Triglyceride: greater than or equal to 5OO mg/dL Cholesterol 196 <200 mg/dL [facility] Comment:Desirable Cholestero l: less than 200 mg/dLBorderline High Cholesterol: 200-239 mg/dLHigh Cholesterol: greater than 239 mg/dL LDL Cholesterol Calculated 134(H) <100 mg/dL [facility] Comment:Desirable LDL: less than 100 mg/dLNear Optimal/Above Optimal LDL: 110- 129 mg/dLBorderline High LDL: 130-159 mg/dLHigh LDL: 160-189 mg/dLVery High LDL: greater than or equal to 190 mg/dL HDL Cholesterol 39(L) >40 mg/dL [facility] Comment:Desirable HDL: great er than 40 mg/dL Note: This HDL assay may give artificially low results in patients with liver disease. Blood Venous blood specimen / Unknown 11/28/2024 10:14 AM EDT 11/28/2024 11:01 AM EDT us Jacqueline Cardozo [employer] LAB BLOOD ORDERABLES Final Res ult [facility] [address] [place] [phone] [phone] from Last 3 Months or Most Recently Relevant to Health Maintenance Insurance [facility] C3 Care Teams Dock Boss Relationship Specialty Start Date End Date Jacqueline Cardozo FNP [address] [place] [phone] PCP - General Family Medicine 11/24/24
--- OUTSIDE RECORDS SUMMARY | 2025-03-16 16:17 | XMS_ITS | Clinical Summary ---
Author Organization [facility] Address [address] [facility] [address] [place] [address] Phone Care Team Providers Care Utilities Manager Name Role Phone Kvng Gold MD Unavailable [phone] [facility], [facility] Primary Care Provider Allergies Active Allergy [...] Phone Billing Address Personal/Family Self 1995 03/[address] [place] [address] [facility] C3 ACO * Guarantor: Loren Campos Account Type Relation to Patient Date of Phone Billing Address Personal/Family Self 1995 03/[address] [place] [address] [facility] C3 ACO [address] [place] [phone] [facility] C3 ACO [facility] C3 ACO * Guarantor: Mohit Camposie Account Type Relation to Patient Date of Phone Billing Address Personal/Family Self 1995 [address] [place], [place] [phone] [place] [address] [facility] C3 ACO * Guarantor: Loren Campos Account Type Relation to Patient Date of Phone Billing Address Personal/Family Self 1995 [address] [place] [address] [facility] C3 ACO Care Teams Utilities Manager Relationship Specialty Start Date End Date [facility] [address] [place] [address] PCP - General 02/13/25 Kvng Gold MD [address] [place] [phone] Obstetrics and Gynecology 05/03/24 Additional Source Comments The information contained in this document represents components of the legal health record. It is not the complete legal health record.[facility]
--- OUTSIDE RECORDS SUMMARY | 2025-03-16 16:17 | XMS_ITS | Encounter Summary ---
Author Organization [employer] Address [address] [facility] 7t [place] [address] Care Team Providers Care Active Directory Systems Administrator Name Role Phone Jacqueline Cardozo [facility] Primary Care Provider [phone] Encounter Details Date Type Department Care Team (Latest Contact Info) Description 03/16/2025 Travel Social History Tobacco Use Types Packs/Day [...] as of this encounter Plan of Treatment Upcoming Encounters Date Type Department Care Team (Late st Contact Info) Description 04/25/2025 9:45 AM EST Office Visit [facility] [address] [place] [address] Jacqueline Cardozo FNP [address] [place] [address] documented as of this encounter Visit Diagnoses Not on filedocumented in this encounter Additional Health Concerns Assessment Noted Time PHQ-9 Depression Total Score: 3 11/25/19 25 3:10 PM EDT documented as of this encounter Care Teams Active Directory Systems Administrator Relationship Specialty Start Date End Date Jacqueline Cardozo FNP [address] [place] [address] PCP - General Family Medicine 11/24/24 documented as of this encounter
--- OUTSIDE RECORDS SUMMARY | 2025-03-16 16:17 | XMS_ITS | Encounter Summary ---
Author Organization [facility] [employer] Address [address] [facility] 7t [place] [address] Care Team Providers Care Ditching Machine Engineer Name Role Phone Vaishali Borja [employer] Primary Care Provider [phone] Jacqueline CardozoP Primary Care Provider Reason for Visit * Reason Onset Date Comments New PT 05/19/2024 Encounter Details Date Type Department Care Team ([facility] st Contact Info) Description 05/19/2024 Telephone [facility] [address] [place], [place] [phone] Baudilio Simmons MD [address] [place] [address] New PT Social History Tobacco Use Types [...] contacted and will be reflected in 24hrs. Senior Mobile Solutions Architect advised will re-verify on 05/22/24 and contact pt * Telephone Encounter - Julisa Miguel - 05/19/2024 9:42 AM EST TC from caller requesting NEW PATIENT visit . DX : Asthma Sinusitis Herpes Medical Concern: Insurance name : [employer] C3 Location : [facility] Demographic information updated documented in this encounter Plan of Treatment Upcoming Encounters Date Type Department Care Team (Late st Contact Info) Description 04/25/2025 9:45 AM EST Office Visit [facility] [address] [place] [address] Jacqueline Cardozo FNP [address] [place] [address] documented as of this encounter Visit Diagnoses Not on filedocumented in this encounter Care Teams Ditching Machine Engineer Relationship Specialty Start Date End Date Vaishali Borja NP [address] [place] [phone] PCP - General Family Medicine 08/23/24 11/23/24 Jacqueline Cardozo FNP [address] [place], [place] [phone] PCP - General Family Medicine 11/24/24 documented as of this encounter
[2025-03-16 18:14] LABS: Bacterial Vaginosis PCR POSITIVE (Negative); Candida Group PCR NOT DETECTED (Not Detect); Candida glab krusei PCR NOT DETECTED (Not Detect); Trichomonas vaginalis PCR NOT DETECTED (Not Detect)
[2025-03-16 18:47] LABS: CT PCR NOT DETECTED (Not Detect.); NG PCR NOT DETECTED (Not Detect.)
== END 2025-03-16 15:03 | disposition home or self-care (01) ==
LOC: HO.LNP 15:02
PROVIDERS: Visit Provider Registered Nurse
DX: N89.8 Other specified noninflammatory disorders of vagina (principal); Z20.2 Contact with and (suspected) exposure to infections with a predominantly sexual mode of transmission
CPT/HCPCS: 81515; 87491; 87591

== ENCOUNTER 2025-03-26 22:23 | Emergency (ER) | payer MEDICAID, SELFPAY ==
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
[2025-03-26 22:30] VITALS: BP 111/58; PULSE 100; RESP 20; TEMP 36.6; O2SAT 99; BMI 31.9
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
--- OUTSIDE RECORDS SUMMARY | 2025-03-27 00:10 | XMS_ITS | Encounter Summary ---
Author Organization [employer] Address [address] [facility] 7t [place] [address] Care Team Providers Care Glue Mixer Name Role Phone Vaishali Borja REAL ESTATE INSPECTOR Primary Care Provider [phone] Jacqueline CardozoP Primary Care Provider [phone] Reason for Visit * Reason Onset Date Comments New PT 05/19/2024 Encounter Details Date Type Department Care Team ([facility] st Contact Info) Description 05/19/2024 Telephone [facility] MED[facility]INE [address] [place], [place] [phone] Baudilio Simmons MD [address] [place] [address] New PT Social History Tobacco Use Types [...] contacted and will be reflected in 24hrs. Laundry Manager advised will re-verify on 05/22/24 and contact pt * Telephone Encounter - Julisa Miguel - 05/19/2024 9:42 AM EST TC from caller requesting NEW PATIENT visit . DX : Asthma Sinusitis Herpes Medical Concern: Insurance name : [employer] C3 Location : [facility] Demographic information updated documented in this encounter Plan of Treatment Upcoming Encounters Date Type Department Care Team (Late st Contact Info) Description 04/25/2025 9:45 AM EST Office Visit [facility] MED[facility] [address] [place] [address] Jacqueline Cardozo FNP [address] [place] [address] documented as of this encounter Visit Diagnoses Not on filedocumented in this encounter Care Teams Glue Mixer Relationship Specialty Start Date End Date Vaishali Borja NP [address] [place] [phone] PCP - General Family Medicine 08/23/24 11/23/24 Jacqueline Cardozo FNP [address] [place], [place] [phone] PCP - General Family Medicine 11/24/24 documented as of this encounter
--- OUTSIDE RECORDS SUMMARY | 2025-03-27 00:10 | XMS_ITS | Encounter Summary ---
Author Organization [employer] Address [address] [facility] [address]t [place] [address] Care Team Providers Care Sand Shoveler Name Role Phone Jacqueline Cardozo [facility] Primary Care Provider [phone] Encounter Details Date Type Department Care Team (Latest Contact Info) Description 03/26/2025 Travel Social History Tobacco Use Types Packs/Day [...] Description 04/25/2025 9:45 AM EST Office Visit [facility] MEDICINE [address] [place] [address] Jacqueline Cardozo FNP [address] [place] [address] documented as of this encounter Visit Diagnoses Not on filedocumented in this encounter Additional Health Concerns Assessment Noted Time PHQ-9 Depression Total Score: 3 11/25/19 25 3:10 PM EDT documented as of this encounter Care Teams Sand Shoveler Relationship Specialty Start Date End Date Jacqueline Cardozo FNP [address] [place] [address] PCP - General Family Medicine 11/24/24 documented as of this encounter
--- OUTSIDE RECORDS SUMMARY | 2025-03-27 00:10 | XMS_ITS | Encounter Summary ---
Author Organization [employer] Address [address] [place] [address] Care Team Providers Care Meat Wrapper Name Role Phone Jacqueline Cardozo [facility] Primary Care Provider [phone] Encounter Details Date Type Department Care Team ([facility] st Contact Info) Description 03/19/2025 Results Follow-Up [facility] [address] [place] [address] [facility] [address] [place] [address] Bacterial Vaginosis, POCT urinalysis dipstick manually resulted (CPT 83109), Chlamydia/N. Gonorrhoeae RNA, TMA, Urogenitial Social History Tobacco Use Types Packs/Day Years [...] Description 04/25/2025 9:45 AM EST Office Visit [facility] [address] [place] [address] Jacqueline Cardozo FNP [address] [place] [address] documented as of this encounter Visit Diagnoses Not on filedocumented in this encounter Additional Health Concerns Assessment Noted Time PHQ-9 Depression Total Score: 3 11/25/19 25 3:10 PM EDT documented as of this encounter Care Teams Meat Wrapper Relationship Specialty Start Date End Date Jacqueline Cardozo FNP [address] [place] [address] PCP - General Family Medicine 11/24/24 documented as of this encounter
--- OUTSIDE RECORDS SUMMARY | 2025-03-27 00:10 | XMS_ITS | Clinical Summary ---
Author Organization [facility] Address [address] [place] [id number] Phone Care Team Providers Care Cognos Report Developer Name Role Phone Kvng Gold MD Unavailable [phone] [facility], [facility] Primary Care Provider Allergies Active Allergy Reactions [...] Phone Billing Address Personal/Family Self 1995 03/[address] [place] [address] [facility] * Guarantor: Loren Campos Account Type Relation to Patient Date of Phone Billing Address Personal/Family Self 1995 03/[address] [place] [address] [facility] [birth year][address] [place] [id number] [facility] * Guarantor: Mohit Camposie Account Type Relation to Patient Date of Phone Billing Address Personal/Family Self 1995 202 03[address] [place], [place] [id number] [place] [address] [facility] * Guarantor: Loren Campos Account Type Relation to Patient Date of Phone Billing Address Personal/Family Self 1995 [address] [place] [address] [facility] Care Teams Cognos Report Developer Relationship Specialty Start Date End Date [facility] [address] [place] [address] PCP - General 02/13/25 Kvng Gold MD [address] [place] [id number] Obstetrics and Gynecology 05/03/24 Additional Source Comments The information contained in this document represents components of the legal health record. It is not the complete legal health record.[facility]
--- NOTE | 2025-03-27 00:29 | ED.GENADULT ---
HPI - General Adult General Chief complaint: Skin/Abscess/Foreign Body Stated complaint: body rash` Time Seen by Provider: 03/26/25 23:53 Source: patient Mode of arrival: ambulatory Limitations: no limitations History of Present Illness ED Provider: Dr. Natasha Austin HPI narrative: Patient comes to the emergency room complaining of an itchy rash that started couple of days ago. Patient states that she knows that she is allergic to peanuts. Patient went to a [employer] and shortly after she started developing hives all over. They have been coming and going for about a day. Patient states that she did not see any not in her food. However, patient states that sometimes she does get this rash with [place] food since they cook with not oil. Patient denies any wheezing, any oropharyngeal swelling. patient states that she went to see her PCP, she was prescribed hydroxyzine but has not done much for the hives or the itchiness Related Data Home Medications ?Medication ?Instructions ?Recorded ?Confirmed albuterol sulfate 2.5 mg/3 mL 2.5 mg inhalation Q6H PRN wheezing 12/13/24 (0.083 %) solution for nebulization Previous Rx's ?Medication ?Instructions ?Recorded albuterol sulfate 90 mcg/actuation 2 puff inhalation Q4-6H PRN 12/13/24 aerosol inhaler shortness of breath or wheezing #1 ea azelastine 137 mcg (0.1 %) nasal 2 spray intranasal BID #30 mL 12/13/24 spray budesonide-formoterol HFA 160 2 puff inhalation BID #10.2 grams 12/13/24 mcg-4.5 mcg/actuation aerosol inhaler (Symbicort) mometasone 50 mcg/actuation nasal 2 spray intranasal DAILY #17 grams 02/20/25 spray (Nasonex 24hr Allergy) montelukast 10 mg tablet 10 mg PO BEDTIME #30 tabs 02/20/25 (Singulair) levocetirizine 5 mg tablet (Xyzal) 5 mg PO DAILY #30 tabs 03/02/25 Allergies Allergy/AdvReac Type Severity Reaction Status Date / Time peanut Allergy Rash Verified 03/26/25 22:34 Review of Systems Review of Systems: Constitutional : No Weight loss, No Fever, No Chills, No Night Sweats, No Fatigue, No Malaise ENT/Mouth : No Hearing loss, No Ear Pain, No Nasal Congestion, No Sinus Pain, No Hoarseness, No sore throat, No Rhinorrhea, No Swallowing Difficulty Eyes: No Eye Pain, No Swelling, No Redness, No Foreign Body, No Discharge, No Vision Changes Cardiovascular : No Chest Pain, No SOB, No Dyspnea on Exertion, No Orthopnea, No Edema, No Palpitations Respiratory : No Cough, No Sputum, No Wheezing, No Smoke Exposure, No Dyspnea Gastrointestinal : No Nausea, No Vomiting, No Diarrhea, No Constipation, No abdominal Pain, No Hematochezia, No Melena Genitourinary : no irregular bleeding, No Dysuria, No Urinary Frequency, No Hematuria, No Urinary Incontinence, No Urgency, No Flank Pain, No Urinary Flow Changes, No Hesitancy Musculoskeletal : No joint pain, No Myalgias, No Joint Swelling Skin : complaining of very itchy hives after eating [place] food Neuro : No Weakness, No Numbness, No Paresthesias, No Loss of Consciousness, No Dizziness, No Headache Psych : No Anxiety/Panic, No Depression, No SI/HI/AH/VH, No Social Issues, Heme/Lymph: No Bruising, No Bleeding,No Lymphadenopathy Endocrine : No Polyuria, No Polydipsia, No Temperature Intolerance [facility] Social History Social History Patient Tobacco Use Status: Never used Tobacco Advance Directives: No Advance Directives Information Provided: Yes Physical Exam ED Exam Exam: Appearance: Alert. Oriented X3. No acute distress. Eyes: Pupils equal, round and reactive to light. ENT: Pharynx normal. Neck: Normal inspection. Neck supple. No lymph nodes noted. No crepitus CVS: Normal heart rate and rhythm. Pulses normal. Normal S1 and S2 Respiratory: No respiratory distress. Breath sounds normal. No Wheezing. No rales Abdomen: Soft and nontender. No rigidity. No distention. Skin: patient has hives in her back upper and lower extremities Extremities: No lower extremity edema. No Lacerations. No Rash Neuro: Oriented X 3. No motor deficit. No sensory deficit. Moving all extremities. No slurred speech. CN 2 through 12 grossly intact Psych: calm, cooperative, normal affect Vital Signs: Vital Signs - 24 hr 03/26/25 22:30 03/27/25 00:59 Temperature 97.9 F 98.2 F Pulse Rate 100 87 Respiratory Rate 20 16 Blood Pressure 111/58 L 112/76 Pulse Oximetry 99 100 Oxygen Delivery Method Room Air BMI result Body Mass Index 31.9 Course Course Course Narrative: patient is receiving IV fluids, Benadryl, Solu-Medrol, Pepcid of note, we are going on down time, please see follow-up notes and discharge on paper chart Medications Administered Discontinued Medications Generic Name Dose Route Start Last Admin Trade Name Freq PRN Reason Stop Dose Admin Diphenhydramine HCl 50 mg 03/27/25 00:25 03/27/25 00:46 Diphenhydramine Hcl 50 Mg/Ml Vial IVPUSH 03/27/25 00:26 50 mg ONCE ONE Administration Famotidine 20 mg 03/27/25 00:25 03/27/25 00:48 Famotidine/Pf 20 Mg/2 Ml Vial IVPUSH 03/27/25 00:26 20 mg ONCE ONE Administration Sodium Chloride 1,000 mls @ 999 mls/hr 03/27/25 00:25 03/27/25 00:43 Ns IVCONT 03/27/25 01:25 999 mls/hr .Q1H1M ONE Administration Methylprednisolone Sodium Succinate 125 mg 03/27/25 00:25 03/27/25 00:45 Methylprednisolone Sod Succ 125 Mg/2 Ml Vial IVPUSH 03/27/25 00:26 125 mg ONCE ONE Administration Medical Decision Making Medical Decision Making MDM Narrative: Please see paper chart Patient says it has resolved after IV treatment with diphenhydramine, Solu-Medrol, Pepcid and fluids Discharge Plan Discharge Clinical Impression: Allergies Patient Disposition: Home, Self-Care Prescriptions: No Action levocetirizine [Xyzal] 5 mg tablet 5 mg PO DAILY Qty: 30 3RF albuterol sulfate 2.5 mg /3 mL (0.083 %) solution for nebulization 2.5 mg inhalation Q6H PRN (Reason: wheezing) albuterol sulfate 90 mcg/actuation HFA aerosol inhaler 2 puff inhalation Q4-6H PRN (Reason: shortness of breath or wheezing) Qty: 1 2RF budesonide-formoterol [Symbicort] 160-4.5 mcg/actuation HFA aerosol inhaler 2 puff inhalation BID Qty: 10.2 3RF azelastine 137 mcg (0.1 %) spray,non-aerosol 2 spray intranasal BID Qty: 30 2RF Rx Instructions: administer into each nostril montelukast [Singulair] 10 mg tablet 10 mg PO BEDTIME Qty: 30 3RF mometasone [Nasonex 24hr Allergy] 50 mcg/actuation spray,non-aerosol 2 spray intranasal DAILY Qty: 17 3RF Rx Instructions: administer into each nostril Print Language: Luxembourgish
[2025-03-27 00:59] VITALS: BP 112/76; PULSE 87; RESP 16; TEMP 36.8; O2SAT 100
== END 2025-03-27 03:00 | disposition home or self-care (01) ==
PROVIDERS: Emergency Provider Emergency Medicine
DX: T78.40XA Allergy, unspecified, initial encounter (principal); R21 Rash and other nonspecific skin eruption; X58.XXXA Exposure to other specified factors, initial encounter
CPT/HCPCS: 96374; 96375; 99283; 99284; J1200; J1308; J2919